=== PATIENT | female | born 1950 | race Caucasian/White ===

== ENCOUNTER 2018-02-12 10:26 | Emergency (ER) | payer MEDICARE, MEDICAID ==
[~2018-02-12] VITALS: Ht 165.1 cm; Wt 80.4 kg
[~2018-02-12 10:26] MED LIST: ALBU18HF2 IH; FLUO20CA39 PO; LABE200T28 PO; TIOT18CA7 IH
[2018-02-12 10:52] LABS: BASOPHILS # (AUTO) 0.2 X10'3 (0-0.2); BASOPHILS % (AUTO) 1.4 % (0-1); EOSINOPHILS # (AUTO) 0.3 X10'3 (0-0.9); EOSINOPHILS % (AUTO) 2.4 % (0-6); HEMATOCRIT 40.9 % (35.0-45.0); HEMOGLOBIN 13.6 g/dl (12.0-16.0); MEAN CORPUSCULAR HGB CONC 33.3 % (33.0-36.5); MEAN CORPUSCULAR VOLUME 92.9 FL (78-98); MEAN PLATELET VOLUME 9.8 FL (7.4-10.4); MONOCYTES # (AUTO) 0.9 X10'3 (0-0.9); MONOCYTES % (AUTO) 7.5 % (2-12); NEUTROPHILS % (AUTO) 70.7 % (42-75); PLATELET COUNT 221 X10'3 (140-440); RED CELL DISTRIBUTION WIDTH 14.3 % (11.5-14.5); WHITE BLOOD COUNT 11.4 X10'3 (4.5-11.0)
[2018-02-12] MEDS ORDERED: losartan 50mg tablet PO SCH (11:00)
[2018-02-12 11:02] LABS: INR 0.9 INR; PARTIAL THROMBOPLASTIN TIME 26 SECONDS (22-32); PROTHROMBIN TIME 9.7 SECONDS (9.0-12.0)
[2018-02-12 11:07] LABS: ALANINE AMINOTRANSFERASE 25 U/L (12-78); ALBUMIN 3.2 G/DL (3.4-5.0); ALBUMIN/GLOBULIN RATIO 0.9 (1.1-1.5); ALKALINE PHOSPHATASE 90 IU/L (46-116); ANION GAP 7 (8-16); ASPARTATE AMINO TRANSFERASE 23 U/L (10-37); BILIRUBIN,TOTAL 0.4 MG/DL (0.1-1.0); BLOOD UREA NITROGEN 14 MG/DL (7-18); CALCIUM 8.6 MG/DL (8.5-10.1); CHLORIDE 106 MMOL/L (99-107); GLUCOSE 110 MG/DL (70-104); POTASSIUM 3.8 MMOL/L (3.5-5.1); SODIUM 141 MMOL/L (135-145); TOTAL CARBON DIOXIDE 27.8 MMOL/L (24-32); TOTAL PROTEIN 6.9 G/DL (6.4-8.2); eGFR 56 ML/MIN
[2018-02-12 11:15] LABS: GIANT PLATELET FEW; LARGE PLATELETS FEW; PLATELET ESTIMATE NORMAL
[2018-02-12 11:57] LABS: CLARITY,URINE SLIGHTLY CLOUDY (Clear); COLOR,URINE STRAW (Yellow); GLUCOSE, URINE NEGATIVE (Neg); KETONES,URINE NEGATIVE (Neg); LEUKOCYTE ESTERASE ,URINE NEGATIVE (Neg); NITRITES, URINE NEGATIVE (Neg); OCCULT BLOOD,URINE TRACE-LYSED (Neg); PROTEIN,URINE NEGATIVE (Neg); UROBILINOGEN,URINE 0.2 E.U/dL (0.2-1.0)
[2018-02-12 11:59] LABS: UA COLLECTION TYPE CLN CATCH MIDSTREAM
[2018-02-12 12:10] LABS: SQUAMOUS EPITHELIAL CELL,UR FEW /LPF (FEW)
[2018-02-12 12:11] LABS: BACTERIA,URINE 1+ /HPF (Neg)
[2018-02-12 12:12] LABS: RBC,URINE NONE SEEN /HPF (0-2); WBC,URINE NONE SEEN /HPF (0-4)
[2018-02-12 13:47] VITALS: BP 146/88
== END 2018-02-12 13:54 | disposition home or self-care (01) ==
LOC: ER 10:26
DX: M62.81 Muscle weakness (generalized) (principal); R29.810 Facial weakness; I10 Essential (primary) hypertension; J44.9 Chronic obstructive pulmonary disease, unspecified; F17.200 Nicotine dependence, unspecified, uncomplicated; Z86.73 Personal history of transient ischemic attack (TIA), and cerebral infarction without residual deficits; Z98.61 Coronary angioplasty status; Z88.0 Allergy status to penicillin; Z88.5 Allergy status to narcotic agent; Z88.8 Allergy status to other drugs, medicaments and biological substances; Z79.899 Other long term (current) drug therapy; W18.39XA Other fall on same level, initial encounter; Y93.89 Activity, other specified; Y92.89 Other specified places as the place of occurrence of the external cause; Y99.8 Other external cause status
CPT/HCPCS: 36415; 70450; 71045; 80053; 81001; 84484; 85025; 85610; 85730; 93005; 99285

== ENCOUNTER 2018-03-21 15:19 | Inpatient (IN) | payer MEDICARE, MEDICAID ==
[~2018-03-21] VITALS: Ht 170.2 cm; Wt 76.0 kg
[2018-03-21 16:17] LABS: HEMATOCRIT 40.7 % (35.0-45.0); HEMOGLOBIN 13.6 g/dl (12.0-16.0); MEAN CORPUSCULAR HEMOGLOBIN 30.7 PG (27.0-31.0); MEAN CORPUSCULAR HGB CONC 33.4 % (33.0-36.5); MEAN PLATELET VOLUME 11.3 FL (7.4-10.4); PLATELET COUNT 181 X10'3 (140-440); RED BLOOD COUNT 4.43 X10'6 (4.20-5.60); WHITE BLOOD COUNT 13.1 X10'3 (4.5-11.0)
[2018-03-21 16:35] LABS: BURR CELLS 2+; LARGE PLATELETS MODERATE; PLATELET ESTIMATE NORMAL; PROTHROMBIN TIME 10.1 SECONDS (9.0-12.0); TOTAL CELLS COUNTED 100
[2018-03-21 16:36] LABS: GIANT PLATELET FEW; SCHISTOCYTES FEW
[2018-03-21 16:37] LABS: ROULEAUX 1+; SPHEROCYTES FEW
[2018-03-21 16:40] LABS: ALANINE AMINOTRANSFERASE 26 U/L (12-78); ALBUMIN 2.8 G/DL (3.4-5.0); ALBUMIN/GLOBULIN RATIO 0.9 (1.1-1.5); ALKALINE PHOSPHATASE 95 IU/L (46-116); ANION GAP 15 (8-16); ASPARTATE AMINO TRANSFERASE 24 U/L (10-37); BILIRUBIN,TOTAL 0.4 MG/DL (0.1-1.0); BLOOD UREA NITROGEN 63 MG/DL (7-18); BUN/CREATININE RATIO 27.4 (6.6-38.0); CHLORIDE 102 MMOL/L (99-107); ETHANOL < 0.010 GM/DL (0.0-0.010); GLUCOSE 130 MG/DL (70-104); LIPASE 52 U/L (73-393); MAGNESIUM 1.6 MG/DL (1.5-2.4); PHOSPHORUS 4.8 MG/DL (2.3-4.5); SODIUM 138 MMOL/L (135-145); TOTAL CARBON DIOXIDE 20.8 MMOL/L (24-32); TOTAL PROTEIN 5.9 G/DL (6.4-8.2); eGFR 21 ML/MIN
[2018-03-21 16:42] LABS: POTASSIUM 2.6 MMOL/L (3.5-5.1)
[2018-03-21 16:49] LABS: CALCIUM 7.8 MG/DL (8.5-10.1)
[2018-03-21] MEDS ORDERED: normal saline 1000ML IV soln IVB ONE ×2 (16:55→19:30)
[2018-03-21] MEDS: potassium 10mEq/100ml NS w/LIDOcaine (10mg/bag) IV SCH ×2 (17:25→18:31)
[2018-03-21 17:58] LABS: URINE HCG NEGATIVE (NEG)
[2018-03-21 18:00] LABS: CLARITY,URINE CLOUDY (Clear); COLOR,URINE YELLOW (Yellow); GLUCOSE, URINE NEGATIVE (Neg); KETONES,URINE NEGATIVE (Neg); LEUKOCYTE ESTERASE ,URINE SMALL (Neg); NITRITES, URINE POSITIVE (Neg); OCCULT BLOOD,URINE TRACE-INTACT (Neg); PH,URINE 5.5 (4.8-8.0); PROTEIN,URINE 30 mg/dl (Neg); UROBILINOGEN,URINE 0.2 E.U/dL (0.2-1.0)
[2018-03-21 18:03] LABS: UA COLLECTION TYPE OTHER
[2018-03-21 18:08] LABS: BACTERIA,URINE 3+ /HPF (Neg); MUCUS STRANDS NONE SEEN /LPF (Neg); RBC,URINE 0-2 /HPF (0-2); SQUAMOUS EPITHELIAL CELL,UR MODERATE /LPF (FEW)
[2018-03-21] MEDS ORDERED: levoFLOXACIN-Levaquin 750MG/D5 150 ML IV STA (19:29)
[2018-03-21] MEDS ORDERED: TIOTROPIUM (20:10)
[2018-03-21] MEDS ORDERED: [UNRECOGNIZED DRUG - OTHER] (20:10)
[2018-03-21] MEDS ORDERED: LOSARTAN POTASSIUM 50 MG TAB (20:10)
[2018-03-21] MEDS ORDERED: TRAZODONE 50 MG TABLET (20:10)
[2018-03-21] MEDS ORDERED: FLUOXETINE HCL 20 MG CAPSULE (20:10)
[2018-03-21] MEDS ORDERED: VITAMIN D3 1,000 UNIT TABLET (20:10)
[2018-03-21] MEDS ORDERED: LOSA50TA37 PO (20:17)
[2018-03-21] MEDS ORDERED: CHOL10002 PO (20:17)
[2018-03-21] MEDS ORDERED: TRAZ-218 PO (20:17)
[2018-03-21] MEDS ORDERED: acetaminophen 325mg tablet PO PRN (20:40)
[2018-03-21] MEDS ORDERED: ondansetron/PF 4mg/2ml inj IV PRN (20:40)
[2018-03-21 22:00] VITALS: BP 180/108
[2018-03-21] MEDS: ipratropium 0.5 MG/2.5ML nebule IH SCH (22:06)
[2018-03-21] MEDS: traZODone 50mg tablet PO SCH (23:04)
[2018-03-21] MEDS ORDERED: potassium Cl 20 mEq SR tablet PO PRN (23:35)
[2018-03-21] MEDS ORDERED: potassium Cl 40MEQ/NS 500ml 500 ML IV PRN ×2 (23:35)
[2018-03-21] MEDS ORDERED: magnesium Cl slow-release 64mg tablet PO PRN (23:35)
[2018-03-21] MEDS ORDERED: magnesium 4gm in 100ml NS 100 ML IV PRN (23:35)
[2018-03-21] MEDS: potassium cl 20mEq in 1/2 NS 1,000 ML IV SCH (23:50)
[2018-03-21] MEDS: metroNIDAZOLE-Flagyl 500mg/NS 100 ML IV SCH (23:50)
[2018-03-22] VITALS (14 sets, daily range): BP systolic 109–200; BP diastolic 58–109
[2018-03-22] MEDS: albuterol 2.5 MG/3 ML nebule NEB PRN ×2 (03:00→08:38)
[2018-03-22] MEDS: ipratropium 0.5 MG/2.5ML nebule IH SCH ×2 (03:00→08:38)
[2018-03-22] MEDS: potassium Cl 20 mEq SR tablet PO PRN ×2 (06:00→09:31)
[2018-03-22] MEDS: amLODIPine 2.5mg tablet PO SCH (06:03)
[2018-03-22] MEDS: potassium cl 20mEq in 1/2 NS 1,000 ML IV SCH (06:38)
[2018-03-22 07:36] LABS: RED CELL DISTRIBUTION WIDTH 14.3 % (11.5-14.5)
[2018-03-22 07:41] LABS: HEMATOCRIT 42.2 % (35.0-45.0); MEAN CORPUSCULAR HEMOGLOBIN 30.6 PG (27.0-31.0); MEAN CORPUSCULAR HGB CONC 33.2 % (33.0-36.5); MEAN CORPUSCULAR VOLUME 92.2 FL (78-98); MEAN PLATELET VOLUME 11.5 FL (7.4-10.4); PLATELET COUNT 200 X10'3 (140-440); RED BLOOD COUNT 4.58 X10'6 (4.20-5.60); WHITE BLOOD COUNT 13.3 X10'3 (4.5-11.0)
[2018-03-22 07:57] LABS: ALANINE AMINOTRANSFERASE 28 U/L (12-78); ALBUMIN 2.8 G/DL (3.4-5.0); ALBUMIN/GLOBULIN RATIO 0.9 (1.1-1.5); ALKALINE PHOSPHATASE 93 IU/L (46-116); ASPARTATE AMINO TRANSFERASE 16 U/L (10-37); BILIRUBIN,TOTAL 0.5 MG/DL (0.1-1.0); BLOOD UREA NITROGEN 41 MG/DL (7-18); BUN/CREATININE RATIO 27.2 (6.6-38.0); BURR CELLS 2+; CREATININE 1.51 MG/DL (0.40-0.90); GIANT PLATELET FEW; GLUCOSE 137 MG/DL (70-104); LARGE PLATELETS MODERATE; MAGNESIUM 1.5 MG/DL (1.5-2.4); PLATELET ESTIMATE NORMAL; ROULEAUX 1+; SCHISTOCYTES FEW; SPHEROCYTES FEW; TOTAL CARBON DIOXIDE 21.1 MMOL/L (24-32); TOTAL CELLS COUNTED 100; eGFR 35 ML/MIN
[2018-03-22 08:00] LABS: ANION GAP 12 (8-16); CHLORIDE 106 MMOL/L (99-107); SODIUM 139 MMOL/L (135-145)
[2018-03-22] MEDS ORDERED: ciprofloxacin/D5W 200mg/100mL 100 ML IV SCH (08:00)
[2018-03-22] MEDS: heparin, porcine 5000 units/ml vial SQ SCH ×2 (09:32→20:02)
[2018-03-22] MEDS: metroNIDAZOLE-Flagyl 500mg/NS 100 ML IV SCH ×2 (09:33→16:25)
[2018-03-22] MEDS: FLUoxetine 20mg capsule PO SCH (09:34)
[2018-03-22 12:54] LABS: ALANINE AMINOTRANSFERASE 24 U/L (12-78); ALBUMIN 2.8 G/DL (3.4-5.0); ALBUMIN/GLOBULIN RATIO 0.8 (1.1-1.5); ALKALINE PHOSPHATASE 98 IU/L (46-116); ANION GAP 12 (8-16); BILIRUBIN,TOTAL 0.6 MG/DL (0.1-1.0); BLOOD UREA NITROGEN 36 MG/DL (7-18); BUN/CREATININE RATIO 27.7 (6.6-38.0); CALCIUM 7.7 MG/DL (8.5-10.1); CHLORIDE 106 MMOL/L (99-107); GLUCOSE 146 MG/DL (70-104); SODIUM 138 MMOL/L (135-145); TOTAL CARBON DIOXIDE 19.9 MMOL/L (24-32); TOTAL PROTEIN 6.3 G/DL (6.4-8.2); eGFR 41 ML/MIN
[2018-03-22 12:55] LABS: ASPARTATE AMINO TRANSFERASE 29 U/L (10-37); POTASSIUM 3.5 MMOL/L (3.5-5.1)
[2018-03-22] MEDS ORDERED: furosemide 20 MG/2 ML vial IV ONE (13:35)
[2018-03-22] MEDS: ipratropium/albuterol 3ml nebule NEB SCH ×2 (14:49→20:13)
[2018-03-22] MEDS ORDERED: metroNIDAZOLE-Flagyl 500mg/NS 100 ML IV SCH (16:00)
[2018-03-22] MEDS ORDERED: vancomycin/NS 1 GM ADD-VANTAGE 250 ML IV ONE (16:00)
[2018-03-22] MEDS: metoprolol tartrate 25mg tablet PO SCH ×2 (16:25→20:03)
[2018-03-22] MEDS: hydrALAZINE 20mg/ml inj. IV PRN (17:42)
[2018-03-22] MEDS: vancomycin inj 1,250 MG in normal saline 250ml IV soln 250 ML IV SCH (17:48)
[2018-03-22] MEDS: lactobacillus rhamnosus 10,000 MMU CELLS/CAPSULE PO SCH (19:50)
[2018-03-22] MEDS: traZODone 50mg tablet PO SCH (20:03)
[2018-03-22] MEDS: budesonide 0.5mg/2ml UD nebule IH SCH (20:14)
[2018-03-23] VITALS (28 sets, daily range): BP systolic 100–206; BP diastolic 47–116
[2018-03-23] MEDS: metroNIDAZOLE-Flagyl 500mg/NS 100 ML IV SCH ×2 (00:31→07:27)
[2018-03-23] MEDS: ipratropium/albuterol 3ml nebule NEB SCH ×4 (02:15→19:54)
[2018-03-23 06:14] LABS: ALANINE AMINOTRANSFERASE 18 U/L (12-78); ALBUMIN 2.4 G/DL (3.4-5.0); ALBUMIN/GLOBULIN RATIO 0.9 (1.1-1.5); ALKALINE PHOSPHATASE 80 IU/L (46-116); ANION GAP 8 (8-16); ASPARTATE AMINO TRANSFERASE 20 U/L (10-37); BILIRUBIN,TOTAL 0.5 MG/DL (0.1-1.0); BLOOD UREA NITROGEN 32 MG/DL (7-18); CALCIUM 7.7 MG/DL (8.5-10.1); CHLORIDE 106 MMOL/L (99-107); CREATININE 1.28 MG/DL (0.40-0.90); GLUCOSE 118 MG/DL (70-104); MAGNESIUM 1.4 MG/DL (1.5-2.4); SODIUM 140 MMOL/L (135-145); TOTAL CARBON DIOXIDE 26.1 MMOL/L (24-32); TOTAL PROTEIN 5.1 G/DL (6.4-8.2); eGFR 42 ML/MIN
[2018-03-23 06:23] LABS: POTASSIUM 2.8 MMOL/L (3.5-5.1)
[2018-03-23 06:40] LABS: HEMATOCRIT 36.3 % (35.0-45.0); HEMOGLOBIN 12.1 g/dl (12.0-16.0); MEAN CORPUSCULAR HEMOGLOBIN 30.4 PG (27.0-31.0); MEAN CORPUSCULAR HGB CONC 33.2 % (33.0-36.5); MEAN CORPUSCULAR VOLUME 91.6 FL (78-98); MEAN PLATELET VOLUME 12.5 FL (7.4-10.4); PLATELET COUNT 193 X10'3 (140-440); RED BLOOD COUNT 3.96 X10'6 (4.20-5.60); RED CELL DISTRIBUTION WIDTH 13.8 % (11.5-14.5); WHITE BLOOD COUNT 9.5 X10'3 (4.5-11.0)
[2018-03-23 06:55] LABS: ACANTHOCYTES 1+; LARGE PLATELETS FEW; PLATELET ESTIMATE NORMAL; TOTAL CELLS COUNTED 100
[2018-03-23 06:56] LABS: BURR CELLS 2+; SCHISTOCYTES FEW; SPHEROCYTES FEW
[2018-03-23] MEDS: amLODIPine 2.5mg tablet PO SCH (07:26)
[2018-03-23] MEDS: FLUoxetine 20mg capsule PO SCH (07:26)
[2018-03-23] MEDS: metoprolol tartrate 25mg tablet PO SCH ×2 (07:26→21:28)
[2018-03-23] MEDS: lactobacillus rhamnosus 10,000 MMU CELLS/CAPSULE PO SCH ×2 (07:27→21:28)
[2018-03-23] MEDS: potassium Cl 20 mEq SR tablet PO PRN ×3 (07:27→16:33)
[2018-03-23] MEDS: heparin, porcine 5000 units/ml vial SQ SCH ×2 (07:28→21:27)
[2018-03-23] MEDS: budesonide 0.5mg/2ml UD nebule IH SCH ×2 (07:32→19:54)
[2018-03-23] MEDS ORDERED: levoFLOXACIN-Levaquin 750MG/D5 150 ML IV SCH (08:00)
[2018-03-23] MEDS: hydrALAZINE 20mg/ml inj. IV PRN ×2 (14:36→22:48)
[2018-03-23] MEDS: metroNIDAZOLE 500mg tablet PO SCH (16:00)
[2018-03-23] MEDS: vancomycin inj 1,250 MG in normal saline 250ml IV soln 250 ML IV SCH (17:24)
[2018-03-23] MEDS: traZODone 50mg tablet PO SCH (21:28)
[2018-03-24] VITALS (20 sets, daily range): BP systolic 86–166; BP diastolic 55–85
[2018-03-24] MEDS: metroNIDAZOLE 500mg tablet PO SCH ×2 (00:17→07:49)
[2018-03-24] MEDS: ipratropium/albuterol 3ml nebule NEB SCH ×4 (02:02→20:47)
[2018-03-24 05:08] LABS: BASOPHILS # (AUTO) 0.1 X10'3 (0-0.2); BASOPHILS % (AUTO) 0.5 % (0-1); EOSINOPHILS % (AUTO) 0.1 % (0-6); HEMATOCRIT 38.6 % (35.0-45.0); HEMOGLOBIN 12.5 g/dl (12.0-16.0); LYMPHOCYTES # (AUTO) 1.6 X10'3 (1.1-4.8); LYMPHOCYTES % (AUTO) 16.2 % (21-51); MEAN CORPUSCULAR HEMOGLOBIN 30.2 PG (27.0-31.0); MEAN CORPUSCULAR HGB CONC 32.5 % (33.0-36.5); MEAN CORPUSCULAR VOLUME 92.9 FL (78-98); MEAN PLATELET VOLUME 11.2 FL (7.4-10.4); MONOCYTES % (AUTO) 10.3 % (2-12); NEUTROPHILS # (AUTO) 7.1 X10'3 (1.8-7.7); NEUTROPHILS % (AUTO) 72.9 % (42-75); PLATELET COUNT 206 X10'3 (140-440); RED BLOOD COUNT 4.15 X10'6 (4.20-5.60); RED CELL DISTRIBUTION WIDTH 14.3 % (11.5-14.5); WHITE BLOOD COUNT 9.8 X10'3 (4.5-11.0)
[2018-03-24 05:33] LABS: ALANINE AMINOTRANSFERASE 16 U/L (12-78); ALBUMIN 2.3 G/DL (3.4-5.0); ALBUMIN/GLOBULIN RATIO 0.8 (1.1-1.5); ALKALINE PHOSPHATASE 80 IU/L (46-116); ANION GAP 6 (8-16); ASPARTATE AMINO TRANSFERASE 20 U/L (10-37); BILIRUBIN,TOTAL 0.4 MG/DL (0.1-1.0); BLOOD UREA NITROGEN 25 MG/DL (7-18); BUN/CREATININE RATIO 21.7 (6.6-38.0); CALCIUM 7.9 MG/DL (8.5-10.1); CHLORIDE 109 MMOL/L (99-107); CREATININE 1.15 MG/DL (0.40-0.90); GLUCOSE 118 MG/DL (70-104); MAGNESIUM 2.5 MG/DL (1.5-2.4); SODIUM 140 MMOL/L (135-145); TOTAL CARBON DIOXIDE 24.8 MMOL/L (24-32); TOTAL PROTEIN 5.2 G/DL (6.4-8.2); eGFR 47 ML/MIN
[2018-03-24 05:59] LABS: LARGE PLATELETS FEW; PLATELET ESTIMATE NORMAL
[2018-03-24 06:00] LABS: ANISOCYTOSIS 1+
[2018-03-24] MEDS: amLODIPine 2.5mg tablet PO SCH (06:00)
[2018-03-24] MEDS: lactobacillus rhamnosus 10,000 MMU CELLS/CAPSULE PO SCH ×2 (07:49→20:41)
[2018-03-24] MEDS: heparin, porcine 5000 units/ml vial SQ SCH ×2 (07:49→20:28)
[2018-03-24] MEDS: FLUoxetine 20mg capsule PO SCH (07:50)
[2018-03-24] MEDS: metoprolol tartrate 25mg tablet PO SCH ×2 (07:50→20:27)
[2018-03-24] MEDS: budesonide 0.5mg/2ml UD nebule IH SCH ×2 (08:12→20:47)
[2018-03-24] MEDS: multivitamins, therapeutics tablet PO SCH (16:38)
[2018-03-24] MEDS: traZODone 50mg tablet PO SCH (20:27)
[2018-03-25] VITALS (7 sets, daily range): BP systolic 137–185; BP diastolic 74–93
[2018-03-25] MEDS: ipratropium/albuterol 3ml nebule NEB SCH ×4 (02:24→20:30)
[2018-03-25 06:13] LABS: BASOPHILS % (AUTO) 0.5 % (0-1); EOSINOPHILS # (AUTO) 0.1 X10'3 (0-0.9); EOSINOPHILS % (AUTO) 1.4 % (0-6); HEMATOCRIT 38.3 % (35.0-45.0); HEMOGLOBIN 12.6 g/dl (12.0-16.0); LYMPHOCYTES # (AUTO) 1.8 X10'3 (1.1-4.8); LYMPHOCYTES % (AUTO) 18.6 % (21-51); MEAN CORPUSCULAR HEMOGLOBIN 30.4 PG (27.0-31.0); MEAN CORPUSCULAR HGB CONC 32.9 % (33.0-36.5); MEAN CORPUSCULAR VOLUME 92.3 FL (78-98); MEAN PLATELET VOLUME 10.4 FL (7.4-10.4); MONOCYTES % (AUTO) 10.1 % (2-12); NEUTROPHILS # (AUTO) 6.6 X10'3 (1.8-7.7); NEUTROPHILS % (AUTO) 69.4 % (42-75); PLATELET COUNT 216 X10'3 (140-440); RED BLOOD COUNT 4.15 X10'6 (4.20-5.60); WHITE BLOOD COUNT 9.5 X10'3 (4.5-11.0)
[2018-03-25 06:30] LABS: ALANINE AMINOTRANSFERASE 28 U/L (12-78); ALBUMIN 2.4 G/DL (3.4-5.0); ALBUMIN/GLOBULIN RATIO 0.8 (1.1-1.5); ALKALINE PHOSPHATASE 83 IU/L (46-116); ANION GAP 7 (8-16); ASPARTATE AMINO TRANSFERASE 31 U/L (10-37); BILIRUBIN,TOTAL 0.3 MG/DL (0.1-1.0); BLOOD UREA NITROGEN 27 MG/DL (7-18); BUN/CREATININE RATIO 19.6 (6.6-38.0); CALCIUM 8.1 MG/DL (8.5-10.1); CHLORIDE 108 MMOL/L (99-107); CREATININE 1.38 MG/DL (0.40-0.90); GLUCOSE 101 MG/DL (70-104); MAGNESIUM 2.3 MG/DL (1.5-2.4); SODIUM 140 MMOL/L (135-145); TOTAL CARBON DIOXIDE 25.4 MMOL/L (24-32); TOTAL PROTEIN 5.3 G/DL (6.4-8.2); eGFR 38 ML/MIN
[2018-03-25 07:38] LABS: PLATELET ESTIMATE NORMAL
[2018-03-25 07:39] LABS: BURR CELLS FEW; ELLIPTOCYTES FEW; LARGE PLATELETS FEW; SCHISTOCYTES FEW
[2018-03-25] MEDS: budesonide 0.5mg/2ml UD nebule IH SCH ×2 (08:00→20:30)
[2018-03-25] MEDS: multivitamins, therapeutics tablet PO SCH (08:04)
[2018-03-25] MEDS: levoFLOXACIN 750MG TABLET PO SCH (08:04)
[2018-03-25] MEDS: heparin, porcine 5000 units/ml vial SQ SCH ×2 (08:04→20:01)
[2018-03-25] MEDS: metoprolol tartrate 25mg tablet PO SCH ×2 (08:05→20:00)
[2018-03-25] MEDS: FLUoxetine 20mg capsule PO SCH (08:05)
[2018-03-25] MEDS: lactobacillus rhamnosus 10,000 MMU CELLS/CAPSULE PO SCH ×2 (08:05→20:00)
[2018-03-25] MEDS: metroNIDAZOLE-Flagyl 500mg/NS 100 ML IV SCH ×3 (09:30→23:37)
[2018-03-25] MEDS ORDERED: diatr meglu/diatrizoate 30ml oral sol.-(3 dose) bottle PO SCH (12:00)
[2018-03-25] MEDS ORDERED: VANCOMYCIN LEVEL IV ONE (16:30)
[2018-03-25 18:15] LABS: HIV ANTIBODY 1&2 RAPID NON-REACTIVE (Neg)
[2018-03-25] MEDS: traZODone 50mg tablet PO SCH (22:17)
[2018-03-25] MEDS: diatr meglu/diatrizoate 30ml oral sol.-(3 dose) bottle PO SCH ×2 (22:23→23:35)
[2018-03-26] VITALS (9 sets, daily range): BP systolic 126–177; BP diastolic 74–99
[2018-03-26] MEDS: ipratropium/albuterol 3ml nebule NEB SCH ×4 (02:37→21:24)
[2018-03-26] MEDS: diatr meglu/diatrizoate 30ml oral sol.-(3 dose) bottle PO SCH ×3 (03:00→09:48)
[2018-03-26 06:59] LABS: ALANINE AMINOTRANSFERASE 34 U/L (12-78); ALBUMIN 2.3 G/DL (3.4-5.0); ALBUMIN/GLOBULIN RATIO 0.8 (1.1-1.5); ALKALINE PHOSPHATASE 82 IU/L (46-116); ANION GAP 9 (8-16); ASPARTATE AMINO TRANSFERASE 42 U/L (10-37); BILIRUBIN,TOTAL 0.3 MG/DL (0.1-1.0); BLOOD UREA NITROGEN 24 MG/DL (7-18); CALCIUM 8.3 MG/DL (8.5-10.1); CHLORIDE 108 MMOL/L (99-107); GLUCOSE 119 MG/DL (70-104); PHOSPHORUS 3.7 MG/DL (2.3-4.5); POTASSIUM 4.3 MMOL/L (3.5-5.1); SODIUM 142 MMOL/L (135-145); TOTAL PROTEIN 5.2 G/DL (6.4-8.2); eGFR 45 ML/MIN
[2018-03-26 07:35] LABS: BASOPHILS % (AUTO) 0.3 % (0-1); EOSINOPHILS # (AUTO) 0.2 X10'3 (0-0.9); EOSINOPHILS % (AUTO) 1.9 % (0-6); HEMATOCRIT 38.5 % (35.0-45.0); HEMOGLOBIN 12.7 g/dl (12.0-16.0); LYMPHOCYTES # (AUTO) 2.1 X10'3 (1.1-4.8); LYMPHOCYTES % (AUTO) 18.9 % (21-51); MEAN CORPUSCULAR HEMOGLOBIN 30.2 PG (27.0-31.0); MEAN CORPUSCULAR HGB CONC 32.9 % (33.0-36.5); MEAN CORPUSCULAR VOLUME 91.9 FL (78-98); MEAN PLATELET VOLUME 10.8 FL (7.4-10.4); MONOCYTES # (AUTO) 1.3 X10'3 (0-0.9); MONOCYTES % (AUTO) 11.6 % (2-12); NEUTROPHILS # (AUTO) 7.5 X10'3 (1.8-7.7); NEUTROPHILS % (AUTO) 67.3 % (42-75); PLATELET COUNT 204 X10'3 (140-440); RED BLOOD COUNT 4.19 X10'6 (4.20-5.60); RED CELL DISTRIBUTION WIDTH 14.5 % (11.5-14.5); WHITE BLOOD COUNT 11.1 X10'3 (4.5-11.0)
[2018-03-26] MEDS: lactobacillus rhamnosus 10,000 MMU CELLS/CAPSULE PO SCH ×2 (07:42→19:55)
[2018-03-26] MEDS: FLUoxetine 20mg capsule PO SCH (07:43)
[2018-03-26] MEDS: multivitamins, therapeutics tablet PO SCH (07:43)
[2018-03-26] MEDS: metoprolol tartrate 25mg tablet PO SCH ×2 (07:46→19:55)
[2018-03-26] MEDS: metroNIDAZOLE-Flagyl 500mg/NS 100 ML IV SCH ×2 (07:46→16:23)
[2018-03-26] MEDS: heparin, porcine 5000 units/ml vial SQ SCH (07:46)
[2018-03-26] MEDS: BUDESONIDE 0.25 MG/2 ML AMPUL.NEB IH SCH ×2 (08:23→21:24)
[2018-03-26 10:21] LABS: BURR CELLS FEW; ELLIPTOCYTES FEW; PLATELET ESTIMATE NORMAL; POIKILOCYTOSIS 1+
[2018-03-26 10:22] LABS: SCHISTOCYTES FEW
[2018-03-26 10:23] LABS: LARGE PLATELETS FEW
[2018-03-26] MEDS ORDERED: furosemide 10 MG/1 ML 10ml inj IV ONE (12:15)
[2018-03-26 12:30] LABS: ABG BASE EXCESS -2.1 mmol/L (-2.0-3.0); ABG HCO3 24.3 mmol/L (22.0-26.0); ABG OXYGEN SATURATION 91.3 % (95-98); ABG PCO2 (T) 47.7 mmHg (32.0-45.0); ABG PH (T) 7.325 (7.350-7.450); ABG PO2 (T) 62.8 mmHg (83-108); ALLEN'S TEST Positive; FCOHb 0.1 % (0.5-1.5); FMetHb 0.2 % (0.3-1.12); TOTAL HEMOGLOBIN 13.8 G/dl (12.0-16.0)
[2018-03-26 13:33] LABS: D-DIMER 12.34 MG/L FEU (0-0.50)
[2018-03-26] MEDS ORDERED: heparin 10,000 units/1 ML INJ IV ONE (14:55)
[2018-03-26] MEDS ORDERED: aspirin 325mg tablet, delayed-release (Ecotrin) PO ONE (14:55)
[2018-03-26] MEDS ORDERED: heparin 10,000 units/1 ML INJ IV PRN (14:55)
[2018-03-26] MEDS ORDERED: ipratropium/albuterol 3ml nebule NEB SCH (15:00)
[2018-03-26 15:53] LABS: INR 0.9 INR; PROTHROMBIN TIME 9.6 SECONDS (9.0-12.0)
[2018-03-26 18:17] LABS: CLARITY,URINE CLEAR (Clear); COLOR,URINE YELLOW (Yellow); GLUCOSE, URINE NEGATIVE (Neg); KETONES,URINE NEGATIVE (Neg); LEUKOCYTE ESTERASE ,URINE NEGATIVE (Neg); NITRITES, URINE NEGATIVE (Neg); OCCULT BLOOD,URINE NEGATIVE (Neg); PH,URINE 5.5 (4.8-8.0); PROTEIN,URINE NEGATIVE (Neg); UROBILINOGEN,URINE 0.2 E.U/dL (0.2-1.0)
[2018-03-26 18:25] LABS: UA COLLECTION TYPE FOLEY CATH
[2018-03-26] MEDS: furosemide 40mg/4ml inj IV SCH (19:55)
[2018-03-26] MEDS: traZODone 50mg tablet PO SCH (20:00)
[2018-03-27] MEDS: metroNIDAZOLE-Flagyl 500mg/NS 100 ML IV SCH ×3 (00:26→16:27)
[2018-03-27] MEDS: ipratropium/albuterol 3ml nebule NEB SCH ×4 (02:56→21:04)
[2018-03-27 03:00] VITALS: BP 143/87
[2018-03-27 03:50] LABS: ALANINE AMINOTRANSFERASE 50 U/L (12-78); ALBUMIN 2.5 G/DL (3.4-5.0); ALBUMIN/GLOBULIN RATIO 0.8 (1.1-1.5); ALKALINE PHOSPHATASE 97 IU/L (46-116); ANION GAP 6 (8-16); ASPARTATE AMINO TRANSFERASE 84 U/L (10-37); BILIRUBIN,TOTAL 0.3 MG/DL (0.1-1.0); BLOOD UREA NITROGEN 24 MG/DL (7-18); BUN/CREATININE RATIO 20.7 (6.6-38.0); CALCIUM 8.3 MG/DL (8.5-10.1); CHLORIDE 105 MMOL/L (99-107); CHOL/HDL RATIO 2.2 (0.00-4.99); CHOLESTEROL 126 MG/DL (0-200); CREATININE 1.16 MG/DL (0.40-0.90); GLUCOSE 127 MG/DL (70-104); HDL CHOLESTEROL 58 MG/DL (35-60); LDL CHOLESTEROL 52 MG/DL (50-100); MAGNESIUM 1.8 MG/DL (1.5-2.4); PHOSPHORUS 4.1 MG/DL (2.3-4.5); POTASSIUM 3.9 MMOL/L (3.5-5.1); SODIUM 140 MMOL/L (135-145); TOTAL CARBON DIOXIDE 29.5 MMOL/L (24-32); TOTAL PROTEIN 5.6 G/DL (6.4-8.2); TRIGLYCERIDES 103 MG/DL (20-135); eGFR 47 ML/MIN
[2018-03-27 04:17] LABS: BASOPHILS # (AUTO) 0.1 X10'3 (0-0.2); BASOPHILS % (AUTO) 0.8 % (0-1); EOSINOPHILS # (AUTO) 0.3 X10'3 (0-0.9); EOSINOPHILS % (AUTO) 2.2 % (0-6); HEMATOCRIT 39.9 % (35.0-45.0); LYMPHOCYTES # (AUTO) 2.1 X10'3 (1.1-4.8); LYMPHOCYTES % (AUTO) 15.8 % (21-51); MEAN CORPUSCULAR HEMOGLOBIN 30.3 PG (27.0-31.0); MEAN CORPUSCULAR HGB CONC 32.5 % (33.0-36.5); MONOCYTES # (AUTO) 1.3 X10'3 (0-0.9); MONOCYTES % (AUTO) 9.4 % (2-12); NEUTROPHILS # (AUTO) 9.6 X10'3 (1.8-7.7); NEUTROPHILS % (AUTO) 71.8 % (42-75); PLATELET COUNT 218 X10'3 (140-440); RED BLOOD COUNT 4.29 X10'6 (4.20-5.60); RED CELL DISTRIBUTION WIDTH 14.9 % (11.5-14.5); WHITE BLOOD COUNT 13.3 X10'3 (4.5-11.0)
[2018-03-27 06:00] VITALS: BP_SYST 114; BP_SYST 120; BP_DIAS 72; BP_DIAS 77
[2018-03-27] MEDS: metoprolol tartrate 25mg tablet PO SCH ×2 (08:00→19:49)
[2018-03-27] MEDS: losartan 50mg tablet PO SCH (08:00)
[2018-03-27] MEDS: BUDESONIDE 0.25 MG/2 ML AMPUL.NEB IH SCH ×2 (08:26→21:04)
[2018-03-27] MEDS: aspirin 81mg tablet.DR PO SCH (08:37)
[2018-03-27] MEDS: atorvastatin 20mg tablet PO SCH (08:37)
[2018-03-27] MEDS: multivitamins, therapeutics tablet PO SCH (08:37)
[2018-03-27] MEDS: FLUoxetine 20mg capsule PO SCH (08:38)
[2018-03-27] MEDS: furosemide 40mg/4ml inj IV SCH ×2 (08:40→19:48)
[2018-03-27] MEDS: levoFLOXACIN 750MG TABLET PO SCH (08:46)
[2018-03-27 09:05] LABS: RPR Non Reactive (Non Reactive)
[2018-03-27] MEDS: lactobacillus rhamnosus 10,000 MMU CELLS/CAPSULE PO SCH ×2 (09:34→19:49)
[2018-03-27 11:00] VITALS: BP 108/78
[2018-03-27 11:10] LABS: C DIFF ANTIGEN NEGATIVE (NEGATIVE); C DIFF SPECIMEN=DIARRHEA? ACCEPTABLE; C DIFFICILE TOXINS A&B NEGATIVE (Neg)
[2018-03-27 12:40] LABS: HEPATITIS C ANTIBODY 0.1 s/co ratio (0.0-0.9)
[2018-03-27 15:00] VITALS: BP 128/78
[2018-03-27 19:00] VITALS: BP 116/60
[2018-03-27] MEDS: heparin, porcine 5000 units/ml vial SQ SCH (19:49)
[2018-03-27] MEDS: carVEDilol 3.125mg tablet PO SCH (19:49)
[2018-03-27] MEDS: traZODone 50mg tablet PO SCH (19:57)
[2018-03-27 23:00] VITALS: BP 111/60
[2018-03-28] VITALS (8 sets, daily range): BP systolic 97–156; BP diastolic 54–78
[2018-03-28] MEDS: metroNIDAZOLE-Flagyl 500mg/NS 100 ML IV SCH ×3 (00:57→18:36)
[2018-03-28] MEDS: ipratropium/albuterol 3ml nebule NEB SCH ×4 (02:48→20:29)
[2018-03-28 07:07] LABS: BASOPHILS % (AUTO) 0.3 % (0-1); EOSINOPHILS # (AUTO) 0.4 X10'3 (0-0.9); EOSINOPHILS % (AUTO) 2.4 % (0-6); HEMATOCRIT 36.7 % (35.0-45.0); LYMPHOCYTES # (AUTO) 2.2 X10'3 (1.1-4.8); LYMPHOCYTES % (AUTO) 14.8 % (21-51); MEAN CORPUSCULAR HEMOGLOBIN 30.5 PG (27.0-31.0); MEAN CORPUSCULAR HGB CONC 32.7 % (33.0-36.5); MEAN CORPUSCULAR VOLUME 93.3 FL (78-98); MEAN PLATELET VOLUME 10.4 FL (7.4-10.4); MONOCYTES # (AUTO) 1.5 X10'3 (0-0.9); MONOCYTES % (AUTO) 9.9 % (2-12); NEUTROPHILS # (AUTO) 10.7 X10'3 (1.8-7.7); NEUTROPHILS % (AUTO) 72.6 % (42-75); PLATELET COUNT 219 X10'3 (140-440); RED BLOOD COUNT 3.93 X10'6 (4.20-5.60); RED CELL DISTRIBUTION WIDTH 14.6 % (11.5-14.5); WHITE BLOOD COUNT 14.7 X10'3 (4.5-11.0)
[2018-03-28 07:26] LABS: LARGE PLATELETS FEW; PLATELET ESTIMATE NORMAL
[2018-03-28] MEDS: multivitamins, therapeutics tablet PO SCH (07:40)
[2018-03-28] MEDS: carVEDilol 3.125mg tablet PO SCH ×2 (07:40→20:09)
[2018-03-28] MEDS: lactobacillus rhamnosus 10,000 MMU CELLS/CAPSULE PO SCH ×2 (07:40→18:36)
[2018-03-28] MEDS: atorvastatin 20mg tablet PO SCH (07:40)
[2018-03-28] MEDS: FLUoxetine 20mg capsule PO SCH (07:41)
[2018-03-28] MEDS: aspirin 81mg tablet.DR PO SCH (07:41)
[2018-03-28 07:44] LABS: ALANINE AMINOTRANSFERASE 41 U/L (12-78); ALBUMIN 2.4 G/DL (3.4-5.0); ALBUMIN/GLOBULIN RATIO 0.9 (1.1-1.5); ALKALINE PHOSPHATASE 84 IU/L (46-116); ANION GAP 9 (8-16); ASPARTATE AMINO TRANSFERASE 48 U/L (10-37); BILIRUBIN,TOTAL 0.3 MG/DL (0.1-1.0); BLOOD UREA NITROGEN 30 MG/DL (7-18); BUN/CREATININE RATIO 23.4 (6.6-38.0); CHLORIDE 103 MMOL/L (99-107); CREATININE 1.28 MG/DL (0.40-0.90); GLUCOSE 129 MG/DL (70-104); MAGNESIUM 1.7 MG/DL (1.5-2.4); PHOSPHORUS 3.5 MG/DL (2.3-4.5); POTASSIUM 3.3 MMOL/L (3.5-5.1); SODIUM 140 MMOL/L (135-145); TOTAL CARBON DIOXIDE 28.4 MMOL/L (24-32); TOTAL PROTEIN 5.2 G/DL (6.4-8.2); eGFR 42 ML/MIN
[2018-03-28] MEDS: heparin, porcine 5000 units/ml vial SQ SCH ×2 (07:44→20:09)
[2018-03-28] MEDS: furosemide 40mg/4ml inj IV SCH ×2 (07:46→20:10)
[2018-03-28] MEDS: losartan 50mg tablet PO SCH ×2 (08:00→14:36)
[2018-03-28] MEDS: metoprolol tartrate 25mg tablet PO SCH (08:00)
[2018-03-28] MEDS: BUDESONIDE 0.25 MG/2 ML AMPUL.NEB IH SCH ×3 (08:28→20:29)
[2018-03-28] MEDS ORDERED: magnesium Cl slow-release 64mg tablet PO PRN (09:35)
[2018-03-28] MEDS ORDERED: potassium Cl 40MEQ/NS 500ml 500 ML IV PRN ×2 (09:35)
[2018-03-28] MEDS ORDERED: magnesium 1gm/100ml D5W IVPB 100 ML IV PRN (09:35)
[2018-03-28] MEDS ORDERED: magnesium 4gm in 100ml NS 100 ML IV PRN (09:35)
[2018-03-28] MEDS ORDERED: potassium Cl 20 mEq SR tablet PO PRN ×2 (09:35)
[2018-03-28] MEDS ORDERED: potassium Cl oral solution 20 MEQ/15 ML PO PRN (10:15)
[2018-03-28] MEDS: potassium Cl oral solution 20 MEQ/15 ML PO PRN ×3 (10:27→20:09)
[2018-03-28] MEDS ORDERED: losartan 50mg tablet PO SCH (14:00)
[2018-03-28] MEDS ORDERED: furosemide 40mg/4ml inj IV ONE (15:15)
[2018-03-28] MEDS ORDERED: piperacillin-tazo 2.25gm/50ml 50 ML IV SCH (20:00)
[2018-03-28] MEDS: traZODone 50mg tablet PO SCH (20:09)
[2018-03-29] MEDS: metroNIDAZOLE-Flagyl 500mg/NS 100 ML IV SCH ×3 (00:40→16:33)
[2018-03-29] MEDS: ipratropium/albuterol 3ml nebule NEB SCH ×4 (02:51→20:10)
[2018-03-29 03:00] VITALS: BP 121/71
[2018-03-29 05:56] LABS: BASOPHILS # (AUTO) 0.3 X10'3 (0-0.2); EOSINOPHILS # (AUTO) 0.2 X10'3 (0-0.9); EOSINOPHILS % (AUTO) 1.1 % (0-6); HEMATOCRIT 36.7 % (35.0-45.0); HEMOGLOBIN 12.4 g/dl (12.0-16.0); LYMPHOCYTES # (AUTO) 2.8 X10'3 (1.1-4.8); MEAN CORPUSCULAR HEMOGLOBIN 31.1 PG (27.0-31.0); MEAN CORPUSCULAR HGB CONC 33.8 % (33.0-36.5); MEAN CORPUSCULAR VOLUME 92.2 FL (78-98); MONOCYTES # (AUTO) 1.7 X10'3 (0-0.9); MONOCYTES % (AUTO) 11.6 % (2-12); NEUTROPHILS # (AUTO) 9.5 X10'3 (1.8-7.7); NEUTROPHILS % (AUTO) 66.3 % (42-75); PLATELET COUNT 214 X10'3 (140-440); RED BLOOD COUNT 3.98 X10'6 (4.20-5.60); RED CELL DISTRIBUTION WIDTH 13.9 % (11.5-14.5); WHITE BLOOD COUNT 14.5 X10'3 (4.5-11.0)
[2018-03-29 06:23] LABS: ALANINE AMINOTRANSFERASE 47 U/L (12-78); ALBUMIN 2.3 G/DL (3.4-5.0); ALBUMIN/GLOBULIN RATIO 0.8 (1.1-1.5); ALKALINE PHOSPHATASE 75 IU/L (46-116); ANION GAP 7 (8-16); ASPARTATE AMINO TRANSFERASE 42 U/L (10-37); BILIRUBIN,TOTAL 0.2 MG/DL (0.1-1.0); BLOOD UREA NITROGEN 37 MG/DL (7-18); BUN/CREATININE RATIO 29.1 (6.6-38.0); CALCIUM 8.3 MG/DL (8.5-10.1); CHLORIDE 104 MMOL/L (99-107); CREATININE 1.27 MG/DL (0.40-0.90); GLUCOSE 143 MG/DL (70-104); MAGNESIUM 1.7 MG/DL (1.5-2.4); PHOSPHORUS 3.5 MG/DL (2.3-4.5); SODIUM 141 MMOL/L (135-145); TOTAL CARBON DIOXIDE 30.3 MMOL/L (24-32); TOTAL PROTEIN 5.1 G/DL (6.4-8.2); eGFR 42 ML/MIN
[2018-03-29 07:00] VITALS: BP 105/62
[2018-03-29] MEDS: lactobacillus rhamnosus 10,000 MMU CELLS/CAPSULE PO SCH ×2 (07:00→19:59)
[2018-03-29] MEDS: carVEDilol 3.125mg tablet PO SCH ×2 (08:00→19:59)
[2018-03-29] MEDS: BUDESONIDE 0.25 MG/2 ML AMPUL.NEB IH SCH (08:16)
[2018-03-29] MEDS: aspirin 81mg tablet.DR PO SCH (08:16)
[2018-03-29] MEDS: heparin, porcine 5000 units/ml vial SQ SCH ×2 (08:16→20:01)
[2018-03-29] MEDS: furosemide 40mg/4ml inj IV SCH ×2 (08:16→20:02)
[2018-03-29] MEDS: FLUoxetine 20mg capsule PO SCH (08:17)
[2018-03-29] MEDS: levoFLOXACIN 750MG TABLET PO SCH (08:17)
[2018-03-29] MEDS: atorvastatin 20mg tablet PO SCH (08:17)
[2018-03-29] MEDS: multivitamins, therapeutics tablet PO SCH (08:17)
[2018-03-29 11:00] VITALS: BP 96/54
[2018-03-29] MEDS: losartan 50mg tablet PO SCH (14:00)
[2018-03-29 15:00] VITALS: BP 112/58
[2018-03-29 19:00] VITALS: BP 123/75
[2018-03-29] MEDS: traZODone 50mg tablet PO SCH (21:26)
[2018-03-29 23:00] VITALS: BP 139/68
[2018-03-30] MEDS: metroNIDAZOLE-Flagyl 500mg/NS 100 ML IV SCH ×2 (00:49→07:49)
[2018-03-30] MEDS: ipratropium/albuterol 3ml nebule NEB SCH ×5 (02:38→22:40)
[2018-03-30 03:00] VITALS: BP 117/63
[2018-03-30 06:51] LABS: BASOPHILS # (AUTO) 0.1 X10'3 (0-0.2); BASOPHILS % (AUTO) 0.4 % (0-1); EOSINOPHILS # (AUTO) 0.3 X10'3 (0-0.9); EOSINOPHILS % (AUTO) 1.8 % (0-6); HEMATOCRIT 36.8 % (35.0-45.0); HEMOGLOBIN 12.2 g/dl (12.0-16.0); LYMPHOCYTES # (AUTO) 2.3 X10'3 (1.1-4.8); LYMPHOCYTES % (AUTO) 13.4 % (21-51); MEAN CORPUSCULAR HEMOGLOBIN 30.5 PG (27.0-31.0); MEAN CORPUSCULAR HGB CONC 33.1 % (33.0-36.5); MEAN CORPUSCULAR VOLUME 92.4 FL (78-98); MEAN PLATELET VOLUME 10.2 FL (7.4-10.4); MONOCYTES # (AUTO) 1.4 X10'3 (0-0.9); MONOCYTES % (AUTO) 8.1 % (2-12); NEUTROPHILS # (AUTO) 12.8 X10'3 (1.8-7.7); NEUTROPHILS % (AUTO) 76.3 % (42-75); PLATELET COUNT 220 X10'3 (140-440); RED BLOOD COUNT 3.98 X10'6 (4.20-5.60); RED CELL DISTRIBUTION WIDTH 13.5 % (11.5-14.5); WHITE BLOOD COUNT 16.9 X10'3 (4.5-11.0)
[2018-03-30 07:00] VITALS: BP 123/61
[2018-03-30 07:06] LABS: ANION GAP 5 (8-16); BILIRUBIN,TOTAL 0.3 MG/DL (0.1-1.0); BLOOD UREA NITROGEN 35 MG/DL (7-18); BUN/CREATININE RATIO 27.6 (6.6-38.0); CALCIUM 8.2 MG/DL (8.5-10.1); CHLORIDE 101 MMOL/L (99-107); CREATININE 1.27 MG/DL (0.40-0.90); GLUCOSE 142 MG/DL (70-104); MAGNESIUM 1.7 MG/DL (1.5-2.4); PHOSPHORUS 3.9 MG/DL (2.3-4.5); POTASSIUM 4.3 MMOL/L (3.5-5.1); SODIUM 136 MMOL/L (135-145); TOTAL CARBON DIOXIDE 30.3 MMOL/L (24-32); TOTAL PROTEIN 5.2 G/DL (6.4-8.2); eGFR 42 ML/MIN
[2018-03-30 07:07] LABS: ALANINE AMINOTRANSFERASE 43 U/L (12-78); ALBUMIN 2.2 G/DL (3.4-5.0); ALBUMIN/GLOBULIN RATIO 0.7 (1.1-1.5); ALKALINE PHOSPHATASE 75 IU/L (46-116); ASPARTATE AMINO TRANSFERASE 42 U/L (10-37)
[2018-03-30] MEDS: BUDESONIDE 0.25 MG/2 ML AMPUL.NEB IH SCH ×2 (07:49→18:58)
[2018-03-30] MEDS: lactobacillus rhamnosus 10,000 MMU CELLS/CAPSULE PO SCH ×2 (07:49→19:29)
[2018-03-30] MEDS: multivitamins, therapeutics tablet PO SCH (07:50)
[2018-03-30] MEDS: atorvastatin 20mg tablet PO SCH (07:50)
[2018-03-30] MEDS: furosemide 40mg/4ml inj IV SCH ×2 (07:50→19:31)
[2018-03-30] MEDS: FLUoxetine 20mg capsule PO SCH (07:50)
[2018-03-30] MEDS: heparin, porcine 5000 units/ml vial SQ SCH ×2 (07:51→19:30)
[2018-03-30] MEDS: carVEDilol 3.125mg tablet PO SCH ×2 (08:00→19:29)
[2018-03-30] MEDS: aspirin 81mg tablet.DR PO SCH (08:05)
[2018-03-30] MEDS: vancomycin/NS 1 GM ADD-VANTAGE 250 ML IV SCH (10:41)
[2018-03-30 11:00] VITALS: BP 110/60
[2018-03-30] MEDS ORDERED: ipratropium/albuterol 3ml nebule NEB PRN (12:20)
[2018-03-30] MEDS: losartan 50mg tablet PO SCH (14:00)
[2018-03-30 15:00] VITALS: BP 110/71
[2018-03-30] MEDS: clindamycin 600mg/D5W 50ml 50 ML IV SCH ×2 (15:16→19:38)
[2018-03-30] MEDS ORDERED: cefepime 1GM/NS ADD-VANTAGE 100 ML IV SCH (16:00)
[2018-03-30] MEDS: aztreonam inj. 2,000 MG in dextrose 5%-water 100 ML IV SCH ×2 (18:20→23:48)
[2018-03-30 19:00] VITALS: BP 118/65
[2018-03-30] MEDS: traZODone 50mg tablet PO SCH (20:23)
[2018-03-30 23:00] VITALS: BP 109/65
[2018-03-31] MEDS: clindamycin 600mg/D5W 50ml 50 ML IV SCH ×4 (01:13→19:39)
[2018-03-31 03:00] VITALS: BP 102/62
[2018-03-31 06:26] LABS: BASOPHILS # (AUTO) 0.2 X10'3 (0-0.2); EOSINOPHILS # (AUTO) 0.7 X10'3 (0-0.9); EOSINOPHILS % (AUTO) 3.7 % (0-6); HEMATOCRIT 34.5 % (35.0-45.0); HEMOGLOBIN 11.5 g/dl (12.0-16.0); LYMPHOCYTES # (AUTO) 2.1 X10'3 (1.1-4.8); LYMPHOCYTES % (AUTO) 12.2 % (21-51); MEAN CORPUSCULAR HEMOGLOBIN 30.5 PG (27.0-31.0); MEAN CORPUSCULAR HGB CONC 33.2 % (33.0-36.5); MEAN CORPUSCULAR VOLUME 91.8 FL (78-98); MEAN PLATELET VOLUME 9.6 FL (7.4-10.4); MONOCYTES # (AUTO) 1.4 X10'3 (0-0.9); MONOCYTES % (AUTO) 8.2 % (2-12); NEUTROPHILS # (AUTO) 13.2 X10'3 (1.8-7.7); NEUTROPHILS % (AUTO) 74.9 % (42-75); PLATELET COUNT 222 X10'3 (140-440); RED BLOOD COUNT 3.76 X10'6 (4.20-5.60); RED CELL DISTRIBUTION WIDTH 14.6 % (11.5-14.5); WHITE BLOOD COUNT 17.6 X10'3 (4.5-11.0)
[2018-03-31 06:48] LABS: ALANINE AMINOTRANSFERASE 46 U/L (12-78); ALBUMIN/GLOBULIN RATIO 0.7 (1.1-1.5); ALKALINE PHOSPHATASE 80 IU/L (46-116); ANION GAP 3 (8-16); ASPARTATE AMINO TRANSFERASE 64 U/L (10-37); BILIRUBIN,TOTAL 0.3 MG/DL (0.1-1.0); BLOOD UREA NITROGEN 34 MG/DL (7-18); BUN/CREATININE RATIO 28.1 (6.6-38.0); CHLORIDE 101 MMOL/L (99-107); CREATININE 1.21 MG/DL (0.40-0.90); GLUCOSE 139 MG/DL (70-104); MAGNESIUM 1.7 MG/DL (1.5-2.4); PHOSPHORUS 4.3 MG/DL (2.3-4.5); POTASSIUM 4.4 MMOL/L (3.5-5.1); SODIUM 136 MMOL/L (135-145); TOTAL CARBON DIOXIDE 31.9 MMOL/L (24-32); eGFR 45 ML/MIN
[2018-03-31 07:00] VITALS: BP 123/73
[2018-03-31] MEDS: lactobacillus rhamnosus 10,000 MMU CELLS/CAPSULE PO SCH ×2 (07:42→19:40)
[2018-03-31] MEDS: aspirin 81mg tablet.DR PO SCH (07:43)
[2018-03-31] MEDS: FLUoxetine 20mg capsule PO SCH (07:43)
[2018-03-31] MEDS: multivitamins, therapeutics tablet PO SCH (07:43)
[2018-03-31] MEDS: furosemide 40mg/4ml inj IV SCH ×2 (07:43→19:40)
[2018-03-31] MEDS: heparin, porcine 5000 units/ml vial SQ SCH ×2 (07:43→19:45)
[2018-03-31] MEDS: atorvastatin 20mg tablet PO SCH (07:44)
[2018-03-31] MEDS: carVEDilol 3.125mg tablet PO SCH ×2 (07:45→19:40)
[2018-03-31] MEDS: BUDESONIDE 0.25 MG/2 ML AMPUL.NEB IH SCH ×2 (08:02→19:54)
[2018-03-31] MEDS: aztreonam inj. 2,000 MG in dextrose 5%-water 100 ML IV SCH ×2 (09:09→17:16)
[2018-03-31 11:00] VITALS: BP 126/63
[2018-03-31] MEDS: vancomycin/NS 1 GM ADD-VANTAGE 250 ML IV SCH (11:02)
[2018-03-31] MEDS: nystatin 15 GM powder TP SCH ×2 (13:45→20:06)
[2018-03-31] MEDS: losartan 50mg tablet PO SCH (13:45)
[2018-03-31 15:00] VITALS: BP 130/67
[2018-03-31 19:00] VITALS: BP 131/69
[2018-03-31] MEDS: albuterol 2.5 MG/3 ML nebule NEB PRN (19:55)
[2018-03-31] MEDS: traZODone 50mg tablet PO SCH (20:06)
[2018-03-31 23:00] VITALS: BP 130/76
[2018-03-31] MEDS: aztreonam inj. 2,000 MG in normal saline 100ml IV soln 100 ML IV SCH (23:57)
[2018-03-31] MEDS ORDERED: aztreonam inj. 2,000 MG in dextrose 5%-water 100 ML IV SCH (23:59)
[2018-04-01] MEDS: clindamycin 600mg/D5W 50ml 50 ML IV SCH ×3 (02:19→14:21)
[2018-04-01 03:00] VITALS: BP 132/80
[2018-04-01 06:00] VITALS: BP 112/60
[2018-04-01 06:47] LABS: HEMOGLOBIN 11.3 g/dl (12.0-16.0); LYMPHOCYTES # (AUTO) 2.2 X10'3 (1.1-4.8); MONOCYTES # (AUTO) 1.3 X10'3 (0-0.9)
[2018-04-01 07:02] LABS: BASOPHILS % (AUTO) 0 % (0-1); EOSINOPHILS # (AUTO) 0.8 X10'3 (0-0.9); EOSINOPHILS % (AUTO) 4.9 % (0-6); HEMATOCRIT 34.6 % (35.0-45.0); LYMPHOCYTES % (AUTO) 13.4 % (21-51); MEAN CORPUSCULAR HEMOGLOBIN 30.6 PG (27.0-31.0); MEAN CORPUSCULAR HGB CONC 32.7 % (33.0-36.5); MEAN CORPUSCULAR VOLUME 93.8 FL (78-98); MONOCYTES % (AUTO) 7.8 % (2-12); NEUTROPHILS # (AUTO) 11.9 X10'3 (1.8-7.7); NEUTROPHILS % (AUTO) 73.9 % (42-75); PLATELET COUNT 223 X10'3 (140-440); RED BLOOD COUNT 3.69 X10'6 (4.20-5.60); RED CELL DISTRIBUTION WIDTH 14.8 % (11.5-14.5)
[2018-04-01 07:09] LABS: ALANINE AMINOTRANSFERASE 48 U/L (12-78); ALBUMIN/GLOBULIN RATIO 0.6 (1.1-1.5); ALKALINE PHOSPHATASE 75 IU/L (46-116); ANION GAP 1 (8-16); ASPARTATE AMINO TRANSFERASE 44 U/L (10-37); BILIRUBIN,TOTAL 0.2 MG/DL (0.1-1.0); BLOOD UREA NITROGEN 33 MG/DL (7-18); BUN/CREATININE RATIO 28.7 (6.6-38.0); CALCIUM 8.5 MG/DL (8.5-10.1); CHLORIDE 101 MMOL/L (99-107); CREATININE 1.15 MG/DL (0.40-0.90); GLUCOSE 139 MG/DL (70-104); MAGNESIUM 2.1 MG/DL (1.5-2.4); PHOSPHORUS 4.2 MG/DL (2.3-4.5); POTASSIUM 4.2 MMOL/L (3.5-5.1); SODIUM 136 MMOL/L (135-145); TOTAL CARBON DIOXIDE 33.7 MMOL/L (24-32); TOTAL PROTEIN 5.1 G/DL (6.4-8.2); eGFR 47 ML/MIN
[2018-04-01 07:21] LABS: GIANT PLATELET FEW; LARGE PLATELETS FEW; PLATELET ESTIMATE NORMAL
[2018-04-01] MEDS: BUDESONIDE 0.25 MG/2 ML AMPUL.NEB IH SCH (08:03)
[2018-04-01] MEDS: albuterol 2.5 MG/3 ML nebule NEB PRN (08:07)
[2018-04-01] MEDS: FLUoxetine 20mg capsule PO SCH (08:14)
[2018-04-01] MEDS: carVEDilol 3.125mg tablet PO SCH (08:14)
[2018-04-01] MEDS: atorvastatin 20mg tablet PO SCH (08:14)
[2018-04-01] MEDS: multivitamins, therapeutics tablet PO SCH (08:14)
[2018-04-01] MEDS: lactobacillus rhamnosus 10,000 MMU CELLS/CAPSULE PO SCH (08:14)
[2018-04-01] MEDS: aspirin 81mg tablet.DR PO SCH (08:14)
[2018-04-01] MEDS: furosemide 40mg/4ml inj IV SCH (08:14)
[2018-04-01] MEDS: heparin, porcine 5000 units/ml vial SQ SCH (08:16)
[2018-04-01] MEDS: nystatin 15 GM powder TP SCH ×2 (08:18→14:21)
[2018-04-01] MEDS: aztreonam inj. 2,000 MG in normal saline 100ml IV soln 100 ML IV SCH (09:12)
[2018-04-01] MEDS: vancomycin/NS 1 GM ADD-VANTAGE 250 ML IV SCH (10:50)
[2018-04-01 11:00] VITALS: BP 142/64
[2018-04-01] MEDS: losartan 50mg tablet PO SCH (14:20)
[2018-04-01 16:00] VITALS: BP 119/52
[2018-04-01] MEDS ORDERED: vancomycin/NS 1 GM ADD-VANTAGE 250 ML IV SCH (22:00)
[2018-04-02] MEDS ORDERED: VANCOMYCIN LEVEL IV NR (09:30)
[2018-04-02] MEDS ORDERED: VANCOMYCIN LEVEL IV ONE (21:30)
== END 2018-04-01 16:25 | DRG 871 ==
LOC: ER 15:20 → ED HOLD 20:38 → ORTHO 4S 21:56 → ICU 2S 03-22 10:48 → PCU 3S 03-24 19:39
PROVIDERS: ADMIT Internal Medicine; ATTEND Family Medicine
PROC: 5A09357 Assistance with Respiratory Ventilation, Less than 24 Consecutive Hours, Continuous Positive Airway Pressure (ICD-10-PCS; principal; 2018-03-26)
PROC: 5A09357 Assistance with Respiratory Ventilation, Less than 24 Consecutive Hours, Continuous Positive Airway Pressure (ICD-10-PCS; 2018-03-27)
PROC: CB221ZZ Tomographic (Tomo) Nuclear Medicine Imaging of Lungs and Bronchi using Technetium 99m (Tc-99m) (ICD-10-PCS; 2018-03-27)
PROC: 5A09357 Assistance with Respiratory Ventilation, Less than 24 Consecutive Hours, Continuous Positive Airway Pressure (ICD-10-PCS; 2018-03-28)
PROC: 5A09357 Assistance with Respiratory Ventilation, Less than 24 Consecutive Hours, Continuous Positive Airway Pressure (ICD-10-PCS; 2018-03-29)
PROC: 5A09357 Assistance with Respiratory Ventilation, Less than 24 Consecutive Hours, Continuous Positive Airway Pressure (ICD-10-PCS; 2018-03-30)
PROC: 5A09357 Assistance with Respiratory Ventilation, Less than 24 Consecutive Hours, Continuous Positive Airway Pressure (ICD-10-PCS; 2018-03-31)
PROC: 5A09357 Assistance with Respiratory Ventilation, Less than 24 Consecutive Hours, Continuous Positive Airway Pressure (ICD-10-PCS; 2018-04-01)
DX: A41.9 Sepsis, unspecified organism (principal); J96.20 Acute and chronic respiratory failure, unspecified whether with hypoxia or hypercapnia; I63.9 Cerebral infarction, unspecified; N17.0 Acute kidney failure with tubular necrosis; I50.43 Acute on chronic combined systolic (congestive) and diastolic (congestive) heart failure; J69.0 Pneumonitis due to inhalation of food and vomit; G93.40 Encephalopathy, unspecified; I13.0 Hypertensive heart and chronic kidney disease with heart failure and stage 1 through stage 4 chronic kidney disease, or unspecified chronic kidney disease; I47.1 Supraventricular tachycardia; K56.7 Ileus, unspecified; M48.54XA Collapsed vertebra, not elsewhere classified, thoracic region, initial encounter for fracture; N39.0 Urinary tract infection, site not specified; K52.9 Noninfective gastroenteritis and colitis, unspecified; F32.9 Major depressive disorder, single episode, unspecified; B96.20 Unspecified Escherichia coli [E. coli] as the cause of diseases classified elsewhere; J44.9 Chronic obstructive pulmonary disease, unspecified; E87.6 Hypokalemia; K63.89 Other specified diseases of intestine; G51.0 Bell's palsy; D35.02 Benign neoplasm of left adrenal gland; F01.50 Vascular dementia, unspecified severity, without behavioral disturbance, psychotic disturbance, mood disturbance, and anxiety; D64.9 Anemia, unspecified; K21.9 Gastro-esophageal reflux disease without esophagitis; E66.01 Morbid (severe) obesity due to excess calories; N18.9 Chronic kidney disease, unspecified; R79.1 Abnormal coagulation profile; Z66 Do not resuscitate; Z98.51 Tubal ligation status; Z90.710 Acquired absence of both cervix and uterus; Z90.81 Acquired absence of spleen; Z99.81 Dependence on supplemental oxygen; Z88.5 Allergy status to narcotic agent; Z88.0 Allergy status to penicillin; Z88.8 Allergy status to other drugs, medicaments and biological substances; Z79.899 Other long term (current) drug therapy; Z68.26 Body mass index [BMI] 26.0-26.9, adult; Y92.89 Other specified places as the place of occurrence of the external cause
CPT/HCPCS: 36415; 36600; 70551; 71045; 71250; 74176; 78582; 80053; 80061; 80320; 81001; 81003; 81025; 82140; 82607; 82746; 82803; 83605; 83690; 83735; 83880; 84100; 84132; 84443; 84484; 85018; 85025; 85379; 85610; 85730; 86592; 86703; 86803; 87040; 87070; 87077; 87088; 87186; 87324; 87449; 89055; 92616; 93005; 93306; 93880; 93970; 94640; 94660; 94667; 94668; 94760; 96360; 96361; 97110; 97161; 97530; 99285; A4315; A6212; A6213; A6250; A9539; A9540; J0360; J0744; J1644; J1940; J1956; J3370; J3475; J3480; J3490; J7030; J7060; J7626; Q9963

== ENCOUNTER 2019-02-24 10:37 | Inpatient (IN) | payer MEDICARE, MEDICAID ==
[~2019-02-24] VITALS: Ht 165.1 cm; Wt 85.0 kg
[~2019-02-24 10:37] MED LIST changes: -ALBU18HF2 IH; +CHOL10002 PO; -LABE200T28 PO; +LOSA50TA64 PO; +TRAZ-251 PO
--- NOTE | 2019-02-24 10:55 | NUR ---
MANUAL BP TAKEN, PTS BP 260/115. PTS SATS 86-88% ON 2L, O2 INCREASED TO 4L. PT FINDINGS REPORTED TO MD BULL AND PT MOVED TO BED 3 FROM BED 10. REPORT GIVEN TO WILBERTO PRESTON.
[2019-02-24] MEDS ORDERED: levoFLOXACIN-Levaquin 750MG/D5 150 ML IV ONE (11:05)
[2019-02-24] MEDS ORDERED: nitroGLYCERIN-Tridil 50MG/D5W 250 ML IV SCH (11:05)
[2019-02-24] MEDS ORDERED: ipratropium/albuterol 3ml nebule ONE (11:24)
[2019-02-24 11:50] LABS: CLARITY,URINE CLOUDY (Clear); COLOR,URINE YELLOW (Yellow); GLUCOSE, URINE NEGATIVE (Neg); KETONES,URINE NEGATIVE (Neg); LEUKOCYTE ESTERASE ,URINE NEGATIVE (Neg); NITRITES, URINE POSITIVE (Neg); OCCULT BLOOD,URINE NEGATIVE (Neg); PROTEIN,URINE NEGATIVE (Neg); UROBILINOGEN,URINE 0.2 E.U/dL (0.2-1.0)
[2019-02-24 11:52] LABS: BASOPHILS # (AUTO) 0.1 X10'3 (0-0.2); HEMATOCRIT 40.1 % (35.0-45.0); HEMOGLOBIN 12.8 g/dl (12.0-16.0); LYMPHOCYTES # (AUTO) 2.1 X10'3 (1.1-4.8); MEAN CORPUSCULAR HEMOGLOBIN 30.8 PG (27.0-31.0); MEAN CORPUSCULAR HGB CONC 31.9 g/dL (33.0-36.5); MEAN CORPUSCULAR VOLUME 96.4 FL (78-98); MONOCYTES # (AUTO) 0.9 X10'3 (0-0.9)
[2019-02-24 11:53] LABS: BASOPHILS % (AUTO) 1.5 % (0-1); EOSINOPHILS # (AUTO) 0.4 X10'3 (0-0.9); EOSINOPHILS % (AUTO) 3.9 % (0-6); LYMPHOCYTES % (AUTO) 22.1 % (21-51); MEAN PLATELET VOLUME 10.3 FL (7.4-10.4); MONOCYTES % (AUTO) 9.1 % (2-12); NEUTROPHILS # (AUTO) 6.1 X10'3 (1.8-7.7); NEUTROPHILS % (AUTO) 63.4 % (42-75); PLATELET COUNT 267 X10'3 (140-440); RED BLOOD COUNT 4.17 X10'6 (4.20-5.60); RED CELL DISTRIBUTION WIDTH 14.5 % (11.5-14.5); WHITE BLOOD COUNT 9.5 X10'3 (4.5-11.0)
[2019-02-24 11:56] LABS: ABG BASE EXCESS 7.2 mmol/L (-2.0-3.0); ABG HCO3 35.2 mmol/L (22.0-26.0); ABG PCO2 (T) 66.7 mmHg (32.0-45.0); ABG PO2 (T) 77.7 mmHg (83-108); ALLEN'S TEST Positive; FCOHb 1.2 % (0.5-1.5); FLOW 3 L/min; FMetHb 0.2 % (0.3-1.12); FO2Hb 93.7 % (94-100); RESPIRATORY RATE (OBSERVED) 20 b/min; TOTAL HEMOGLOBIN 13.2 G/dl (12.0-16.0)
[2019-02-24 11:59] LABS: UA COLLECTION TYPE STRAIGHT CATH
[2019-02-24 12:01] LABS: BACTERIA,URINE 3+ /HPF (Neg); SQUAMOUS EPITHELIAL CELL,UR MODERATE /LPF (FEW)
[2019-02-24 12:02] LABS: RBC,URINE 0-2 /HPF (0-2); WBC CLUMPS,URINE MODERATE /HPF (NEGATIVE)
[2019-02-24 12:08] LABS: PARTIAL THROMBOPLASTIN TIME 28 SECONDS (22-32)
[2019-02-24 12:31] LABS: PLATELET ESTIMATE NORMAL
[2019-02-24 12:32] LABS: GIANT PLATELET FEW; LARGE PLATELETS FEW
[2019-02-24 12:38] LABS: ALANINE AMINOTRANSFERASE 15 U/L (12-78); ALBUMIN/GLOBULIN RATIO 0.8 (1.1-1.5); ALKALINE PHOSPHATASE 76 IU/L (46-116); ANION GAP 5 (8-16); ASPARTATE AMINO TRANSFERASE 9 U/L (10-37); BILIRUBIN,TOTAL 0.3 MG/DL (0.1-1.0); BLOOD UREA NITROGEN 24 MG/DL (7-18); BUN/CREATININE RATIO 28.9 (6.6-38.0); CALCIUM 8.8 MG/DL (8.5-10.1); CHLORIDE 105 MMOL/L (99-107); CREATININE 0.83 MG/DL (0.40-0.90); GLUCOSE 116 MG/DL (70-104); POTASSIUM 3.7 MMOL/L (3.5-5.1); SODIUM 144 MMOL/L (135-145); TOTAL CARBON DIOXIDE 33.6 MMOL/L (24-32); eGFR 69 ML/MIN
[2019-02-24 12:46] LABS: MAGNESIUM 2.1 MG/DL (1.5-2.4)
[2019-02-24] MEDS ORDERED: LOSA100T57 PO (13:12)
[2019-02-24] MEDS ORDERED: CARV6.253 PO (13:14)
[2019-02-24] MEDS ORDERED: LOPE2CAP PO (13:14)
[2019-02-24] MEDS ORDERED: ALBU18HF2 INH (13:14)
[2019-02-24] MEDS ORDERED: nitroGLYCERIN 0.4mg/hour patch TD ONE (13:20)
--- NOTE | 2019-02-24 13:35 | NUR ---
OK PER DR BULL FOR PT TO EAT.
--- NOTE | 2019-02-24 13:41 | NUR ---
PT TO CT
[2019-02-24] MEDS ORDERED: mag hydrox/Alum hydrox/simeth 30ml oral suspension PO PRN (15:20)
[2019-02-24] MEDS ORDERED: acetaminophen 325mg tablet PO PRN (15:20)
[2019-02-24] MEDS ORDERED: ondansetron/PF 4mg/2ml inj IV PRN (15:20)
[2019-02-24] MEDS ORDERED: magnesium hydroxide 30ml (MOM) UD suspension PO PRN (15:20)
--- NOTE | 2019-02-24 18:17 | NUR ---
Problems reprioritized. Patient report given, questions answered & plan of care reviewed with Eliane LADD.
--- NOTE | 2019-02-24 18:29 | NUR ---
Problems reprioritized. Patient report given, questions answered & plan of care reviewed with Aspen LADD. Addendum: 02/24/19 at 1829 by Radha Taylor RN Report given to Eliane LADD
--- NOTE | 2019-02-24 18:29 | NUR ---
Patient in room PCU 3012. I have received report from Eloy and had the opportunity to ask questions and assume patient care.
[2019-02-24] MEDS ORDERED: ipratropium 0.5 MG/2.5ML nebule IH SCH (19:00)
[2019-02-24] MEDS: ipratropium/albuterol 3ml nebule NEB SCH ×2 (19:08→23:07)
[2019-02-24] MEDS: loperamide 2mg capsule PO SCH (19:19)
[2019-02-24] MEDS: carvedilol 6.25mg tablet PO SCH (19:19)
[2019-02-24] MEDS: heparin, porcine 5000 units/ml vial SQ SCH (19:20)
[2019-02-24 20:06] VITALS: BP 171/84
[2019-02-24 20:23] VITALS: BP 162/109
[2019-02-24] MEDS: hydrALAZINE 20mg/ml inj. IV PRN (21:14)
[2019-02-24 21:50] VITALS: BP 115/58
[2019-02-24 23:00] VITALS: BP 135/69
[2019-02-25] VITALS (7 sets, daily range): BP systolic 126–182; BP diastolic 56–105
[2019-02-25] MEDS: ipratropium/albuterol 3ml nebule NEB SCH ×6 (03:27→22:42)
--- NOTE | 2019-02-25 03:35 | NUR ---
Discussed with Dr. Keller about the patient having a forrester but no order in. He told me to put in the order for forrester protocol.
[2019-02-25 06:11] LABS: BASOPHILS # (AUTO) 0.1 X10'3 (0-0.2); BASOPHILS % (AUTO) 1.1 % (0-1); EOSINOPHILS # (AUTO) 0.3 X10'3 (0-0.9); HEMATOCRIT 35.1 % (35.0-45.0); HEMOGLOBIN 11.5 g/dl (12.0-16.0); LYMPHOCYTES # (AUTO) 1.9 X10'3 (1.1-4.8); LYMPHOCYTES % (AUTO) 22.4 % (21-51); MEAN CORPUSCULAR HEMOGLOBIN 31.3 PG (27.0-31.0); MEAN CORPUSCULAR HGB CONC 32.7 g/dL (33.0-36.5); MEAN CORPUSCULAR VOLUME 95.8 FL (78-98); MEAN PLATELET VOLUME 10.5 FL (7.4-10.4); MONOCYTES # (AUTO) 0.9 X10'3 (0-0.9); MONOCYTES % (AUTO) 10.9 % (2-12); NEUTROPHILS # (AUTO) 5.3 X10'3 (1.8-7.7); NEUTROPHILS % (AUTO) 62.6 % (42-75); PLATELET COUNT 251 X10'3 (140-440); RED BLOOD COUNT 3.67 X10'6 (4.20-5.60); RED CELL DISTRIBUTION WIDTH 14.1 % (11.5-14.5); WHITE BLOOD COUNT 8.4 X10'3 (4.5-11.0)
--- NOTE | 2019-02-25 06:17 | NUR ---
Problems reprioritized. Patient report given, questions answered & plan of care reviewed with Dariela.
[2019-02-25 06:18] LABS: ALBUMIN 2.6 G/DL (3.4-5.0); ANION GAP 4 (8-16); BLOOD UREA NITROGEN 18 MG/DL (7-18); BUN/CREATININE RATIO 23.7 (6.6-38.0); CALCIUM 8.6 MG/DL (8.5-10.1); CHLORIDE 109 MMOL/L (99-107); CREATININE 0.76 MG/DL (0.40-0.90); GLUCOSE 118 MG/DL (70-104); POTASSIUM 3.8 MMOL/L (3.5-5.1); SODIUM 147 MMOL/L (135-145); TOTAL CARBON DIOXIDE 34.4 MMOL/L (24-32); eGFR 76 ML/MIN
--- NOTE | 2019-02-25 06:22 | NUR ---
Patient in room PCU 3012. I have received report from Eliane LADD and had the opportunity to ask questions and assume patient care.
[2019-02-25 07:21] LABS: LARGE PLATELETS FEW; PLATELET ESTIMATE NORMAL
[2019-02-25] MEDS: carvedilol 6.25mg tablet PO SCH ×2 (07:34→19:15)
[2019-02-25] MEDS: FLUoxetine 20mg capsule PO SCH (07:34)
[2019-02-25] MEDS: losartan 50mg tablet PO SCH (07:34)
[2019-02-25] MEDS: loperamide 2mg capsule PO SCH ×2 (07:34→19:15)
[2019-02-25] MEDS: heparin, porcine 5000 units/ml vial SQ SCH ×2 (07:35→19:16)
[2019-02-25] MEDS: levoFLOXACIN-Levaquin 500mg/D5 100 ML IV SCH (07:36)
[2019-02-25] MEDS: prednisone 10mg tablet PO SCH (07:45)
[2019-02-25] MEDS ORDERED: non-formulary drug (Tiotropium Bromide* (Spiriva*) 18 MCG) IH SCH (08:00)
[2019-02-25] MEDS ORDERED: non-formulary drug (Losartan Potassium 1 TAB) PO SCH (08:00)
--- NOTE | 2019-02-25 15:45 | NUR ---
Discontinued forrester catheter. Tolerated well. Wick in place.
[2019-02-25] MEDS: hydrALAZINE 20mg/ml inj. IV PRN ×2 (16:49→23:41)
--- NOTE | 2019-02-25 16:51 | NUR ---
PAGER ID: [phone] MESSAGE: [phone] Love Slaughter Bedrest since admission. UTD activity level. Can we get a PT eval? Thanks! Kapil RAMSEY [phone]
--- NOTE | 2019-02-25 17:49 | NUR ---
Orientee documentation: I have reviewed and agree with interventions, assessments performed and documented by Herminia LADD. Orientee Medication Administration: For this medication-pass time frame, medication were reviewed, dispensed, administered and documented per hospital policy by Herminia LADD
--- NOTE | 2019-02-25 18:13 | NUR ---
Problems reprioritized. Patient report given, questions answered & plan of care reviewed with Shari LADD and Hector LADD.
--- NOTE | 2019-02-25 18:15 | NUR ---
Patient in room PCU 3012A. I have received report from WILBERTO Parrish and had the opportunity to ask questions and assume patient care. Will continue to monitor
[2019-02-25] MEDS: lactobacillus rhamnosus 10,000 MMU CELLS/CAPSULE PO SCH (19:15)
[2019-02-26 02:00] VITALS: BP 137/54
[2019-02-26] MEDS: ipratropium/albuterol 3ml nebule NEB SCH ×3 (02:36→11:37)
--- NOTE | 2019-02-26 05:12 | NUR ---
Orientee Medication Administration: For this medication-pass time frame, all medication were reviewed, dispensed, administered and documented per hospital policy by Hector LADD. Orientee documentation: I have reviewed all interventions, assessments performed and documented by Hector LADD.
[2019-02-26 05:24] LABS: BASOPHILS # (AUTO) 0.1 X10'3 (0-0.2); BASOPHILS % (AUTO) 1.2 % (0-1); EOSINOPHILS # (AUTO) 0.1 X10'3 (0-0.9); HEMATOCRIT 36.3 % (35.0-45.0); HEMOGLOBIN 11.9 g/dl (12.0-16.0); LYMPHOCYTES # (AUTO) 2.2 X10'3 (1.1-4.8); LYMPHOCYTES % (AUTO) 22.3 % (21-51); MEAN CORPUSCULAR HEMOGLOBIN 31.4 PG (27.0-31.0); MEAN CORPUSCULAR HGB CONC 32.8 g/dL (33.0-36.5); MEAN CORPUSCULAR VOLUME 95.6 FL (78-98); MEAN PLATELET VOLUME 10.8 FL (7.4-10.4); MONOCYTES % (AUTO) 9.8 % (2-12); NEUTROPHILS # (AUTO) 6.6 X10'3 (1.8-7.7); NEUTROPHILS % (AUTO) 65.7 % (42-75); PLATELET COUNT 266 X10'3 (140-440); RED CELL DISTRIBUTION WIDTH 13.8 % (11.5-14.5)
[2019-02-26 05:40] LABS: ALBUMIN 2.6 G/DL (3.4-5.0); ANION GAP 6 (8-16); BLOOD UREA NITROGEN 18 MG/DL (7-18); BUN/CREATININE RATIO 21.4 (6.6-38.0); CALCIUM 8.9 MG/DL (8.5-10.1); CHLORIDE 104 MMOL/L (99-107); CREATININE 0.84 MG/DL (0.40-0.90); GLUCOSE 107 MG/DL (70-104); SODIUM 142 MMOL/L (135-145); TOTAL CARBON DIOXIDE 31.6 MMOL/L (24-32); eGFR 68 ML/MIN
[2019-02-26 06:00] VITALS: BP 186/80
--- NOTE | 2019-02-26 06:13 | NUR ---
Problems reprioritized. Patient report given, questions answered & plan of care reviewed with Sangeeta LADD & Faby LADD.
--- NOTE | 2019-02-26 06:34 | NUR ---
Patient in room PCU 3012. I have received report from Shari LADD and Hector RN and had the opportunity to ask questions and assume patient care. Pt is resting on room air, A&O X4, in no apparent distress, will continue to monitor.
[2019-02-26] MEDS: hydrALAZINE 20mg/ml inj. IV PRN (07:01)
[2019-02-26] MEDS: loperamide 2mg capsule PO SCH (08:00)
[2019-02-26] MEDS: prednisone 10mg tablet PO SCH (09:21)
[2019-02-26] MEDS: levoFLOXACIN-Levaquin 500mg/D5 100 ML IV SCH (09:21)
[2019-02-26] MEDS: lactobacillus rhamnosus 10,000 MMU CELLS/CAPSULE PO SCH (09:21)
[2019-02-26] MEDS: losartan 50mg tablet PO SCH (09:21)
[2019-02-26] MEDS: carvedilol 6.25mg tablet PO SCH (09:21)
[2019-02-26] MEDS: FLUoxetine 20mg capsule PO SCH (09:21)
[2019-02-26] MEDS: heparin, porcine 5000 units/ml vial SQ SCH (09:22)
[2019-02-26] MEDS ORDERED: PRED10TA PO (10:53)
[2019-02-26] MEDS ORDERED: CEFD300C3 PO (10:53)
[2019-02-26 11:00] VITALS: BP 135/68
--- NOTE | 2019-02-26 13:00 | NUR ---
O2 Sat at rest on room air:_88__% If below 89%: Recovery O2 Sat at rest on __2_LPM:93___%: via nasal cannula. No further documentation is necessary.
--- NOTE | 2019-02-26 15:00 | NUR ---
Pt stable for discharge per MD orders. Reviewed discharge instructions with pt and pt's daughter. New prescription delivered via [facility] bedside. Palliative care nurse will be contacting pt on Friday March 01, 2019 and pt and pt's daughter aware of this. [facility] delivered portable O2 prior to discharge. IV discontinued with canula intact and tele discontinued. Pt alert and oriented X 4 with stable vital signs. Pt transferred to private care driven by her daughter via wheelchair.
== END 2019-02-26 15:10 | disposition home health service (06) | DRG 189 ==
LOC: ER 10:38 → PCU 3S 16:33 → CMPBEDREQ 19:50
PROVIDERS: ADMIT Family Medicine; ATTEND Family Medicine
DX: J96.21 Acute and chronic respiratory failure with hypoxia (principal); J44.1 Chronic obstructive pulmonary disease with (acute) exacerbation; N39.0 Urinary tract infection, site not specified; I13.0 Hypertensive heart and chronic kidney disease with heart failure and stage 1 through stage 4 chronic kidney disease, or unspecified chronic kidney disease; F15.90 Other stimulant use, unspecified, uncomplicated; F32.9 Major depressive disorder, single episode, unspecified; I50.9 Heart failure, unspecified; K21.9 Gastro-esophageal reflux disease without esophagitis; I16.0 Hypertensive urgency; B96.20 Unspecified Escherichia coli [E. coli] as the cause of diseases classified elsewhere; Z66 Do not resuscitate; N18.9 Chronic kidney disease, unspecified; Z51.5 Encounter for palliative care; Z86.73 Personal history of transient ischemic attack (TIA), and cerebral infarction without residual deficits; Z87.891 Personal history of nicotine dependence; Z88.0 Allergy status to penicillin; Z88.5 Allergy status to narcotic agent; Z95.820 Peripheral vascular angioplasty status with implants and grafts; Z88.8 Allergy status to other drugs, medicaments and biological substances; Z87.01 Personal history of pneumonia (recurrent); Z95.5 Presence of coronary angioplasty implant and graft; Z98.51 Tubal ligation status
CPT/HCPCS: 36415; 36600; 70450; 71045; 80048; 80053; 81001; 82803; 83605; 83735; 83880; 84145; 84484; 85018; 85025; 85610; 85730; 87040; 87077; 87081; 87088; 87186; 93005; 93306; 94640; 94760; 96365; 96366; 96368; 99285; G0378; J0360; J1644; J1956; J3490; J7512

== ENCOUNTER 2019-06-26 10:31 | Inpatient (IN) | payer MEDICARE, MEDICAID ==
[~2019-06-26] VITALS: Ht 165.1 cm; Wt 85.0 kg
[~2019-06-26 10:31] MED LIST changes: +ALBU18HF2 INH; +CARV6.253 PO; -CHOL10002 PO; +LOPE2CAP PO; +LOSA100T57 PO; -LOSA50TA64 PO; +PRED10TA PO; -TRAZ-251 PO
[2019-06-26 11:33] LABS: EOSINOPHILS # (AUTO) 0.2 X10'3 (0-0.9); EOSINOPHILS % (AUTO) 1.5 % (0-6); WHITE BLOOD COUNT 10.9 X10'3 (4.5-11.0)
[2019-06-26 11:34] LABS: BASOPHILS % (AUTO) 0.3 % (0-1); HEMATOCRIT 37.1 % (35.0-45.0); HEMOGLOBIN 11.8 g/dl (12.0-16.0); LYMPHOCYTES # (AUTO) 1.4 X10'3 (1.1-4.8); LYMPHOCYTES % (AUTO) 12.7 % (21-51); MEAN CORPUSCULAR HEMOGLOBIN 30.8 PG (27.0-31.0); MEAN CORPUSCULAR HGB CONC 31.9 g/dL (33.0-36.5); MEAN CORPUSCULAR VOLUME 96.5 FL (78-98); MEAN PLATELET VOLUME 11.1 FL (7.4-10.4); MONOCYTES # (AUTO) 0.7 X10'3 (0-0.9); MONOCYTES % (AUTO) 6.9 % (2-12); NEUTROPHILS # (AUTO) 8.6 X10'3 (1.8-7.7); NEUTROPHILS % (AUTO) 78.6 % (42-75); PLATELET COUNT 205 X10'3 (140-440); RED BLOOD COUNT 3.85 X10'6 (4.20-5.60)
[2019-06-26 11:49] LABS: PARTIAL THROMBOPLASTIN TIME 24 SECONDS (22-32)
--- NOTE | 2019-06-26 11:50 | NUR ---
Tele-neuro came on and evaluated pt. will talk with ER doctor.
[2019-06-26 11:53] LABS: LARGE PLATELETS FEW; PLATELET ESTIMATE NORMAL
[2019-06-26 11:54] LABS: ACANTHOCYTES 1+; ALANINE AMINOTRANSFERASE 27 U/L (12-78); ALBUMIN 3.1 G/DL (3.4-5.0); ALKALINE PHOSPHATASE 68 IU/L (46-116); ANION GAP 3 (8-16); ASPARTATE AMINO TRANSFERASE 19 U/L (10-37); BILIRUBIN,TOTAL 0.3 MG/DL (0.1-1.0); BLOOD UREA NITROGEN 17 MG/DL (7-18); BUN/CREATININE RATIO 19.8 (6.6-38.0); CHLORIDE 106 MMOL/L (99-107); CREATININE 0.86 MG/DL (0.40-0.90); GLUCOSE 120 MG/DL (70-104); POTASSIUM 4.1 MMOL/L (3.5-5.1); SCHISTOCYTES FEW; SODIUM 150 MMOL/L (135-145); STOMATOCYTES 1+; TOTAL PROTEIN 6.3 G/DL (6.4-8.2); TROPONIN I < 0.04 NG/ML (0.0-0.05); eGFR 66 ML/MIN
[2019-06-26 12:00] LABS: TOTAL CARBON DIOXIDE 41.5 MMOL/L (24-32)
[2019-06-26] MEDS ORDERED: TRAZ-251 PO (12:15)
[2019-06-26] MEDS ORDERED: iohexol 350MG/ML 100ml bottle IV ONE (12:18)
[2019-06-26 12:28] LABS: CLARITY,URINE SLIGHTLY CLOUDY (Clear); COLOR,URINE YELLOW (Yellow); GLUCOSE, URINE NEGATIVE (Neg); KETONES,URINE NEGATIVE (Neg); LEUKOCYTE ESTERASE ,URINE TRACE (Neg); NITRITES, URINE POSITIVE (Neg); OCCULT BLOOD,URINE NEGATIVE (Neg); PROTEIN,URINE 30 mg/dl (Neg); UROBILINOGEN,URINE 0.2 E.U/dL (0.2-1.0)
[2019-06-26 12:31] LABS: UA COLLECTION TYPE STRAIGHT CATH
[2019-06-26 12:36] LABS: ABG BASE EXCESS 12.4 mmol/L (-2.0-3.0); ABG HCO3 41.6 mmol/L (22.0-26.0); ABG OXYGEN SATURATION 91.9 % (95-98); ABG PCO2 (T) 80.5 mmHg (35.0-45.0); ABG PH (T) 7.331 (7.350-7.450); ABG PO2 (T) 62.5 mmHg (83-108); ALLEN'S TEST Positive; FCOHb 1.1 % (0.5-1.5); FLOW 2 L/min; FMetHb 0.2 % (0.3-1.12); FO2Hb 90.7 % (94-100); TOTAL HEMOGLOBIN 12.5 G/dl (12.0-16.0)
[2019-06-26 12:42] LABS: SQUAMOUS EPITHELIAL CELL,UR MANY /LPF (FEW)
[2019-06-26 12:43] LABS: WBC,URINE 20-30 /HPF (0-4)
[2019-06-26 12:44] LABS: BACTERIA,URINE 4+ /HPF (Neg); RBC,URINE 0-2 /HPF (0-2); WBC CLUMPS,URINE FEW /HPF (NEGATIVE)
[2019-06-26] MEDS ORDERED: ipratropium/albuterol 3ml nebule NEB ONE (12:45)
[2019-06-26] MEDS ORDERED: aspirin 325mg tablet PO ONE (14:15)
[2019-06-26 14:31] LABS: ABG BASE EXCESS 9.6 mmol/L (-2.0-3.0); ABG HCO3 38.5 mmol/L (22.0-26.0); ABG OXYGEN SATURATION 96.6 % (95-98); ABG PCO2 (T) 77.3 mmHg (35.0-45.0); ABG PH (T) 7.315 (7.350-7.450); ALLEN'S TEST Positive; FCOHb 1.1 % (0.5-1.5); FMetHb 0.3 % (0.3-1.12); FO2Hb 95.2 % (94-100); PEEP 5 cm H2O; RESPIRATORY RATE 18 b/min; TOTAL HEMOGLOBIN 12.1 G/dl (12.0-16.0)
[2019-06-26] MEDS ORDERED: CefTRIAXone/D5W-Rocephin 1gm 50 ML IV ONE (14:55)
[2019-06-26] MEDS ORDERED: mag hydrox/Alum hydrox/simeth 30ml oral suspension PO PRN (15:10)
[2019-06-26] MEDS ORDERED: acetaminophen 325mg tablet PO PRN (15:10)
[2019-06-26] MEDS ORDERED: magnesium hydroxide 30ml (MOM) UD suspension PO PRN (15:10)
[2019-06-26] MEDS ORDERED: morphine 2 MG/ML inj. syringe IV PRN ×2 (15:10)
[2019-06-26] MEDS ORDERED: ondansetron/PF 4mg/2ml inj IV PRN (15:10)
[2019-06-26] MEDS ORDERED: albuterol 2.5 MG/3 ML nebule NEB PRN (15:20)
[2019-06-26] MEDS: furosemide 20 MG/2 ML vial IV SCH ×2 (15:47→19:50)
[2019-06-26] MEDS: nitroGLYCERIN 0.4mg/hour patch TD SCH (15:48)
[2019-06-26] MEDS: dextrose 5%-water 1,000 ML IV SCH (15:50)
--- NOTE | 2019-06-26 15:53 | NUR ---
Patient in room ED 10. I have received report from WILBERTO Roberts and had the opportunity to ask questions and assume patient care.
--- NOTE | 2019-06-26 16:04 | NUR ---
Paged Dr. Thomas regarding patient unable to pass swallow evaluation and order for HH diet. Patient also does not have any orders to continue BiPAP and possible need to continue.
--- NOTE | 2019-06-26 16:08 | NUR ---
Spoke with Dr. Thomas regarding patients diet order and he stated that he was not concerned regarding patient eating, she needs to be on BiPAP for the elevated CO2. I asked if he wanted me to change the order for HH diet and he stated, "Well if she's not awake enough to eat, she shouldn't be fed." Dr. Thomas also stated to place order to BiPAP per protocol. Will place order for BiPAP per Dr Thomas request.
[2019-06-26 16:30] VITALS: BP 189/90
--- NOTE | 2019-06-26 16:56 | NUR ---
Called Dr Thomas to inform him of the pts ABG's. Ph has gotten more acidic while being on the BiPAP, the CO2 has gone down from 80.5 to 77 in two hours and the HCO3 has also decreased. I stated that I feared the pt would continue to get more acidic on the BiPAP. He stated he wanted to keep her on the BiPAP and get another ABG in about 2 hours. Pt has been easy to arouse for all RT's. Will get another ABG in two hours. Addendum: 06/26/19 at 1707 by RT Amended: Links added.
[2019-06-26 17:50] LABS: ABG BASE EXCESS 13.7 mmol/L (-2.0-3.0); ABG HCO3 43.1 mmol/L (22.0-26.0); ABG OXYGEN SATURATION 95.6 % (95-98); ABG PCO2 (T) 83.8 mmHg (35.0-45.0); ABG PH (T) 7.329 (7.350-7.450); ABG PO2 (T) 79.1 mmHg (83-108); ALLEN'S TEST Positive; FCOHb 0.9 % (0.5-1.5); FMetHb 0.1 % (0.3-1.12); FO2Hb 94.6 % (94-100); MINUTE VOLUME 7 L/min; RESPIRATORY RATE 18 b/min; RESPIRATORY RATE (OBSERVED) 20 b/min; TIDAL VOLUME 301 mL; TOTAL HEMOGLOBIN 12.1 G/dl (12.0-16.0)
--- NOTE | 2019-06-26 18:02 | NUR ---
PAGED DR MEYER WITH NEW ABG RESULTS. pH:7.329, CO2: 83.8, PO2:79.1, HCO3: 43.1. NO NEW ORDERS AT THIS TIME.
--- NOTE | 2019-06-26 18:10 | NUR ---
Sent to Dr Thomas PAGER ID: [phone] MESSAGE: RE: Maddie Slaughter [id number]. Latest ABG PCO2 83.8, BP 162/98. - Haylee/Addison [id number]
--- NOTE | 2019-06-26 18:32 | NUR ---
Problems reprioritized. Patient report given, questions answered & plan of care reviewed with WILBERTO Jaime.
[2019-06-26 19:00] VITALS: BP 160/66
[2019-06-26] MEDS: carvedilol 6.25mg tablet PO SCH (19:50)
[2019-06-26] MEDS: loperamide 2mg capsule PO SCH (19:50)
[2019-06-26 21:20] LABS: ABG BASE EXCESS 14.3 mmol/L (-2.0-3.0); ABG HCO3 43.3 mmol/L (22.0-26.0); ABG OXYGEN SATURATION 96.6 % (95-98); ABG PCO2 (T) 75.9 mmHg (35.0-45.0); ABG PH (T) 7.369 (7.350-7.450); ABG PO2 (T) 82.4 mmHg (83-108); ALLEN'S TEST Positive; FMetHb 0.2 % (0.3-1.12); FO2Hb 95.4 % (94-100); PATIENT TEMPERATURE 35.9; RESPIRATORY RATE 18 b/min; RESPIRATORY RATE (OBSERVED) 20 b/min; TOTAL HEMOGLOBIN 12.3 G/dl (12.0-16.0)
[2019-06-26 23:00] VITALS: BP_SYST 161; BP_SYST 196; BP_DIAS 78; BP_DIAS 87
[2019-06-26] MEDS ORDERED: carvedilol 6.25mg tablet PO ONE (23:25)
[2019-06-27] VITALS (8 sets, daily range): BP systolic 137–182; BP diastolic 62–97
--- NOTE | 2019-06-27 00:49 | NUR ---
SBP reached 200. Dr. Gibbons notified. Patient did not get 2000 coreg dose because she was bi-pap dependent and not alert enough to safely swallow. Her condition is now improved. Coreg ordered. Doc aware that HR is in upper 50's
[2019-06-27] MEDS: dextrose 5%-water 1,000 ML IV SCH ×2 (05:00→11:25)
[2019-06-27 06:28] LABS: BASOPHILS # (AUTO) 0.1 X10'3 (0-0.2); EOSINOPHILS # (AUTO) 0.1 X10'3 (0-0.9); HEMOGLOBIN 11.3 g/dl (12.0-16.0)
[2019-06-27 06:34] LABS: EOSINOPHILS % (AUTO) 1.1 % (0-6); HEMATOCRIT 34.6 % (35.0-45.0); LYMPHOCYTES # (AUTO) 1.6 X10'3 (1.1-4.8); LYMPHOCYTES % (AUTO) 17.8 % (21-51); MEAN CORPUSCULAR HEMOGLOBIN 31.2 PG (27.0-31.0); MEAN CORPUSCULAR HGB CONC 32.5 g/dL (33.0-36.5); MEAN CORPUSCULAR VOLUME 95.9 FL (78-98); MEAN PLATELET VOLUME 11.1 FL (7.4-10.4); NEUTROPHILS # (AUTO) 6.4 X10'3 (1.8-7.7); NEUTROPHILS % (AUTO) 69.1 % (42-75); PLATELET COUNT 172 X10'3 (140-440); RED BLOOD COUNT 3.61 X10'6 (4.20-5.60); RED CELL DISTRIBUTION WIDTH 14.5 % (11.5-14.5); WHITE BLOOD COUNT 9.2 X10'3 (4.5-11.0)
--- NOTE | 2019-06-27 06:39 | NUR ---
Patient in room PCU 3016. I have received report from WILBERTO Jaime and had the opportunity to ask questions and assume patient care. Pt sleeping. Will continue to monitor.
[2019-06-27 07:00] LABS: ANISOCYTOSIS 1+; LARGE PLATELETS FEW; PLATELET ESTIMATE NORMAL; POIKILOCYTOSIS FEW
[2019-06-27 07:11] LABS: ALBUMIN 2.7 G/DL (3.4-5.0); ANION GAP 4 (8-16); BLOOD UREA NITROGEN 16 MG/DL (7-18); BUN/CREATININE RATIO 18.4 (6.6-38.0); CALCIUM 8.5 MG/DL (8.5-10.1); CHLORIDE 101 MMOL/L (99-107); CREATININE 0.87 MG/DL (0.40-0.90); GLUCOSE 115 MG/DL (70-104); POTASSIUM 3.8 MMOL/L (3.5-5.1); SODIUM 142 MMOL/L (135-145); TOTAL CARBON DIOXIDE 37.5 MMOL/L (24-32); eGFR 65 ML/MIN
[2019-06-27] MEDS: furosemide 20 MG/2 ML vial IV SCH ×2 (09:04→19:04)
[2019-06-27] MEDS: enoxaparin 40mg/0.4ml syringe SUBCUT SCH (09:26)
[2019-06-27] MEDS: FLUoxetine 20mg capsule PO SCH (09:26)
[2019-06-27] MEDS: CefTRIAXone/D5W-Rocephin 1gm 50 ML IV SCH (09:27)
[2019-06-27] MEDS: loperamide 2mg capsule PO SCH ×2 (09:27→19:04)
[2019-06-27] MEDS: losartan 50mg tablet PO SCH (09:27)
[2019-06-27] MEDS: carvedilol 6.25mg tablet PO SCH ×2 (09:27→19:04)
[2019-06-27] MEDS: nitroGLYCERIN 0.4mg/hour patch TD SCH (09:28)
--- NOTE | 2019-06-27 14:41 | NUR ---
Sent to Dr Thomas PAGER ID: [phone] MESSAGE: RE: Maddie Slaughter [id number]. FYI pt's 24 hr tele ends at 1500. -Haylee [phone]
[2019-06-27] MEDS ORDERED: pneumococcal 23-VAL P-sac vacc 25 mcg/0.5ml vial IMVAC ONE (15:50)
[2019-06-27] MEDS ORDERED: FLU VACC QS2019-20 36MOS UP/PF 60 MCG/0.5 ML SYRINGE IMVAC ONE (15:50)
--- NOTE | 2019-06-27 16:13 | NUR ---
Patient in room PCU 3016. I have received report from WILBERTO Leach and had the opportunity to ask questions and assume patient care.
--- NOTE | 2019-06-27 18:09 | NUR ---
Problems reprioritized. Patient report given, questions answered & plan of care reviewed with WILBERTO Hernandez.
--- NOTE | 2019-06-27 18:12 | NUR ---
Patient in room U 3016. I have received report from Alejandra LADD and had the opportunity to ask questions and assume patient care. Addendum: 06/27/19 at 1813 by Dian Pro RN wrong patient
--- NOTE | 2019-06-27 18:13 | NUR ---
Patient in room PCU 3016. I have received report from Ghassan LADD and had the opportunity to ask questions and assume patient care.
[2019-06-27] MEDS: lactobacillus rhamnosus 10,000 MMU CELLS/CAPSULE PO SCH (19:04)
--- NOTE | 2019-06-28 02:05 | NUR ---
Notified MD of BP of 187/87. MD states to continue to monitor and have daytime doctors address possibly increasing her PO medication dosages.
[2019-06-28 02:30] VITALS: BP 187/87
--- NOTE | 2019-06-28 02:33 | NUR ---
Problems reprioritized. Patient report given, questions answered & plan of care reviewed with Eliane LADD and Rajiv LADD.
--- NOTE | 2019-06-28 02:36 | NUR ---
Patient in room PCU 3016. I have received report from Mary LADD and had the opportunity to ask questions and assume patient care.
--- NOTE | 2019-06-28 02:40 | NUR ---
Received pt from Mary LADD I agree with her assessment charted 06/27/2019 at 1944
[2019-06-28 06:00] VITALS: BP 234/110
[2019-06-28 06:16] LABS: BASOPHILS # (AUTO) 0.1 X10'3 (0-0.2); BASOPHILS % (AUTO) 1.2 % (0-1); EOSINOPHILS # (AUTO) 0.2 X10'3 (0-0.9); EOSINOPHILS % (AUTO) 2.8 % (0-6); HEMATOCRIT 36.4 % (35.0-45.0); HEMOGLOBIN 11.7 g/dl (12.0-16.0); LYMPHOCYTES # (AUTO) 2.2 X10'3 (1.1-4.8); LYMPHOCYTES % (AUTO) 27.2 % (21-51); MEAN CORPUSCULAR HGB CONC 32.1 g/dL (33.0-36.5); MEAN CORPUSCULAR VOLUME 96.6 FL (78-98); MEAN PLATELET VOLUME 11.2 FL (7.4-10.4); MONOCYTES % (AUTO) 12.2 % (2-12); NEUTROPHILS # (AUTO) 4.5 X10'3 (1.8-7.7); NEUTROPHILS % (AUTO) 56.6 % (42-75); PLATELET COUNT 198 X10'3 (140-440); RED BLOOD COUNT 3.77 X10'6 (4.20-5.60); RED CELL DISTRIBUTION WIDTH 14.7 % (11.5-14.5)
--- NOTE | 2019-06-28 06:23 | NUR ---
Problems reprioritized. Patient report given, questions answered & plan of care reviewed with Haylee RN.
--- NOTE | 2019-06-28 06:30 | NUR ---
Patient in room PCU 3016. I have received report from Eliane RN and WILBERTO Vance and had the opportunity to ask questions and assume patient care. Pt is sleeping. VSS. Will continue to monitor.
--- NOTE | 2019-06-28 06:31 | NUR ---
Pt BP on mobile monitor 250/101, then 232/113, and a manual of 234/110. Called noc hospitalist, Dr Blanton, and he prescribed 10mg IVP Hydralazine one time Now, and stated to inform the day hospitalist so that they may adjust her PO meds.
[2019-06-28] MEDS ORDERED: hydrALAZINE 20mg/ml inj. IV ONE (06:35)
[2019-06-28 06:37] LABS: GIANT PLATELET FEW; LARGE PLATELETS FEW; PLATELET ESTIMATE NORMAL
[2019-06-28 06:40] LABS: ALBUMIN 2.8 G/DL (3.4-5.0); BLOOD UREA NITROGEN 13 MG/DL (7-18); BUN/CREATININE RATIO 15.5 (6.6-38.0); CALCIUM 8.4 MG/DL (8.5-10.1); CHLORIDE 102 MMOL/L (99-107); CREATININE 0.84 MG/DL (0.40-0.90); GLUCOSE 101 MG/DL (70-104); POTASSIUM 3.4 MMOL/L (3.5-5.1); SODIUM 147 MMOL/L (135-145); eGFR 68 ML/MIN
[2019-06-28 06:55] LABS: ANION GAP -1 (8-16)
[2019-06-28 07:03] LABS: TOTAL CARBON DIOXIDE 46.1 MMOL/L (24-32)
--- NOTE | 2019-06-28 07:12 | NUR ---
Sent to Dr Thomas PAGER ID: [phone] MESSAGE: RE: Maddie Slaughter [id number]. CRITICAL VALUE: CO2 46.1. Mobile monitor BP 232/113, 250/101, manual BP 234/110; given 10mg hydralazine IV. New BP after 20 minutes: 251/102. -Haylee [phone]
--- NOTE | 2019-06-28 07:30 | NUR ---
Pt placed on BiPAP due to elevated CO2 levels.
[2019-06-28] MEDS: CefTRIAXone/D5W-Rocephin 1gm 50 ML IV SCH (08:29)
[2019-06-28] MEDS: enoxaparin 40mg/0.4ml syringe SUBCUT SCH (08:30)
[2019-06-28] MEDS: furosemide 20 MG/2 ML vial IV SCH ×2 (08:30→20:40)
[2019-06-28] MEDS: lactobacillus rhamnosus 10,000 MMU CELLS/CAPSULE PO SCH ×2 (08:31→20:40)
[2019-06-28] MEDS: FLUoxetine 20mg capsule PO SCH (08:31)
[2019-06-28] MEDS: loperamide 2mg capsule PO SCH ×2 (08:31→20:40)
[2019-06-28] MEDS: losartan 50mg tablet PO SCH (08:31)
[2019-06-28] MEDS: nitroGLYCERIN 0.4mg/hour patch TD SCH (08:31)
[2019-06-28] MEDS: carvedilol 6.25mg tablet PO SCH ×2 (08:31→20:40)
[2019-06-28] MEDS ORDERED: cloNIDine 0.1 mg tablet PO ONE (09:00)
--- NOTE | 2019-06-28 09:15 | NUR ---
BiPAP taken off pt by Dr Thomas. He is aware of her CO2 levels, and is not concerned.
[2019-06-28] MEDS ORDERED: pneumococcal 23-VAL P-sac vacc 25 mcg/0.5ml vial IMVAC ONE (10:00)
[2019-06-28] MEDS ORDERED: FLU VACC QS2019-20 36MOS UP/PF 60 MCG/0.5 ML SYRINGE IMVAC ONE (10:00)
[2019-06-28 11:00] VITALS: BP 149/62
[2019-06-28] MEDS: ipratropium 0.5 MG/2.5ML nebule IH PRN ×2 (11:50→21:29)
--- NOTE | 2019-06-28 12:03 | NUR ---
Sent to Dr Thomas PAGER ID: [phone] MESSAGE: RE: Maddie Slaughter [phone]. RT recommends Q6hr Tx. -Haylee [phone]
--- NOTE | 2019-06-28 13:25 | NUR ---
Pt's daughter doesn't want the pt to go to rehab because the pt gets depressed and declines. The pt's daughter is the pt's caregiver. She prefers home health for the pt. She is equipped with a hospital bed, nursing specialist/recliner chair, shower chair, toilet seat, O2 machine with a refill station for portable tanks at home.
[2019-06-28 15:00] VITALS: BP 151/75
--- NOTE | 2019-06-28 16:45 | NUR ---
Malnutrition consult: Pt seen at bedside denies any wt loss and is unsure of her UBW. Current wt is stable per wt hx. Pt on heart healthy diet with fluctuating PO intake, documented with 25-50% yesterday, 0% at breakfast today, and up to 75% at lunch. 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 Pt with no decrease in muscle strength, no edema, and no visible fat/muscle wasting. Pt currently does not meet criteria for malnutrition. Pt provided with alternative heart healthy menu to provide additional food options and optimize PO intake. Pt requests cottage cheese QD at dinner, d/w dietary. LBM 06/23 however pt reports unsure of when LBM was and denies constipation/GI symptoms at this time. RD contact information provided. Will continue to follow. Addendum: 06/28/19 at [address] Amended: Links added.
[2019-06-28] MEDS ORDERED: potassium Cl 20 mEq SR tablet PO ONE (17:45)
[2019-06-28 18:30] VITALS: BP 155/89
--- NOTE | 2019-06-28 18:37 | NUR ---
Patient in room PCU 3016. I have received report from Haylee LADD and had the opportunity to ask questions and assume patient care.
[2019-06-28 22:30] VITALS: BP 139/77
[2019-06-29 02:30] VITALS: BP 133/62
[2019-06-29 05:39] LABS: EOSINOPHILS # (AUTO) 0.2 X10'3 (0-0.9); HEMOGLOBIN 11.9 g/dl (12.0-16.0); LYMPHOCYTES # (AUTO) 0.4 X10'3 (1.1-4.8)
[2019-06-29 05:42] LABS: BASOPHILS # (AUTO) 0.1 X10'3 (0-0.2); BASOPHILS % (AUTO) 1.3 % (0-1); EOSINOPHILS % (AUTO) 2.7 % (0-6); HEMATOCRIT 36.7 % (35.0-45.0); LYMPHOCYTES % (AUTO) 4.8 % (21-51); MEAN CORPUSCULAR HEMOGLOBIN 30.9 PG (27.0-31.0); MEAN CORPUSCULAR HGB CONC 32.3 g/dL (33.0-36.5); MEAN CORPUSCULAR VOLUME 95.5 FL (78-98); MEAN PLATELET VOLUME 11.1 FL (7.4-10.4); MONOCYTES # (AUTO) 0.4 X10'3 (0-0.9); MONOCYTES % (AUTO) 5.3 % (2-12); NEUTROPHILS # (AUTO) 6.8 X10'3 (1.8-7.7); NEUTROPHILS % (AUTO) 85.9 % (42-75); PLATELET COUNT 182 X10'3 (140-440); RED BLOOD COUNT 3.84 X10'6 (4.20-5.60); RED CELL DISTRIBUTION WIDTH 14.7 % (11.5-14.5)
--- NOTE | 2019-06-29 05:46 | NUR ---
Orientee documentation: I have reviewed and agree with all interventions, assessments performed and documented by Rajiv LADD.
[2019-06-29 05:49] LABS: ALBUMIN 2.8 G/DL (3.4-5.0); BLOOD UREA NITROGEN 16 MG/DL (7-18); BUN/CREATININE RATIO 17.4 (6.6-38.0); CALCIUM 8.7 MG/DL (8.5-10.1); CHLORIDE 100 MMOL/L (99-107); CREATININE 0.92 MG/DL (0.40-0.90); GLUCOSE 105 MG/DL (70-104); POTASSIUM 3.7 MMOL/L (3.5-5.1); SODIUM 147 MMOL/L (135-145); eGFR 61 ML/MIN
[2019-06-29 06:00] VITALS: BP 160/66
--- NOTE | 2019-06-29 06:15 | NUR ---
Patient in room PCU 3016B. I have received report from Rajiv LADD and Eliane RN and had the opportunity to ask questions and assume patient care.
--- NOTE | 2019-06-29 06:17 | NUR ---
Problems reprioritized. Patient report given, questions answered & plan of care reviewed with Jerica LADD.
[2019-06-29 06:30] LABS: ANION GAP -1 (8-16)
[2019-06-29 06:34] LABS: TOTAL CARBON DIOXIDE 48.1 MMOL/L (24-32)
[2019-06-29 07:39] LABS: LARGE PLATELETS MODERATE; PLATELET ESTIMATE NORMAL
[2019-06-29] MEDS: losartan 50mg tablet PO SCH (07:55)
[2019-06-29] MEDS: lactobacillus rhamnosus 10,000 MMU CELLS/CAPSULE PO SCH ×2 (07:55→20:08)
[2019-06-29] MEDS: loperamide 2mg capsule PO SCH ×2 (07:55→20:08)
[2019-06-29] MEDS: carvedilol 6.25mg tablet PO SCH ×2 (07:56→20:08)
[2019-06-29] MEDS: furosemide 20 MG/2 ML vial IV SCH ×2 (07:56→20:08)
[2019-06-29] MEDS: enoxaparin 40mg/0.4ml syringe SUBCUT SCH (07:56)
[2019-06-29] MEDS: nitroGLYCERIN 0.4mg/hour patch TD SCH (07:56)
[2019-06-29] MEDS: FLUoxetine 20mg capsule PO SCH (07:56)
[2019-06-29] MEDS: CefTRIAXone/D5W-Rocephin 1gm 50 ML IV SCH (07:57)
--- NOTE | 2019-06-29 08:00 | NUR ---
Spoke to Dr Thomas regarding patients venous CO2 trending up. He does not want another ABG and stated that the lasix is what is causing the venous CO2 increase and said patient can continue to switch between BiPap and NC. Will monitor closely
[2019-06-29 11:00] VITALS: BP 147/74
--- NOTE | 2019-06-29 11:20 | NUR ---
Paged Dr Thomas for O2 orders PAGER ID: [phone] MESSAGE: Jerica dhillon [phone]. Love Gupta [id number]. Can we have O2 parameter order please? We only have BiPap orders. Thank you!
[2019-06-29 15:00] VITALS: BP 190/88
--- NOTE | 2019-06-29 15:34 | NUR ---
Paged hospitalist, Dr. Thomas, lukas patient's blood pressure. PAGER ID: [phone] MESSAGE: Chelo x [phone]. LUKAS Hernández, P. 3011. Blood arrived from [facility], need order to transfuse ADI and for you to sign consent. Thank you! Addendum: 06/29/19 at 1601 by Jerica De Los Santos RN Ignore above page, incorrect page copy and pasted
--- NOTE | 2019-06-29 15:40 | NUR ---
Patients BP 190>88. Paged Dr Thomas regarding BP and received order for hydralazine 10 mg IV q6 PRN for SBP greater than 180 Addendum: 06/29/19 at 1604 by Jerica De Los Santos RN INCORRECT PARAMETER. ORDER IS FOR SBP GREATER THAN 160
[2019-06-29] MEDS: hydrALAZINE 20mg/ml inj. IV PRN (15:46)
--- NOTE | 2019-06-29 18:00 | NUR ---
Patient in room PCU 3016. I have received report from Jerica LADD and Chelo LADD and had the opportunity to ask questions and assume patient care.
--- NOTE | 2019-06-29 18:14 | NUR ---
Problems reprioritized. Patient report given, questions answered & plan of care reviewed with Myranda LADD.
--- NOTE | 2019-06-29 18:17 | NUR ---
New hire documentation: I have reviewed and agree with all interventions, assessments performed and documented by Chelo LADD.
[2019-06-29 19:00] VITALS: BP 174/80
[2019-06-29 23:00] VITALS: BP 183/81
[2019-06-30 03:00] VITALS: BP 183/81
[2019-06-30 05:25] LABS: BASOPHILS # (AUTO) 0.1 X10'3 (0-0.2); HEMOGLOBIN 12.2 g/dl (12.0-16.0); LYMPHOCYTES # (AUTO) 0.9 X10'3 (1.1-4.8); MONOCYTES # (AUTO) 0.6 X10'3 (0-0.9); NEUTROPHILS # (AUTO) 2.2 X10'3 (1.8-7.7); WHITE BLOOD COUNT 3.8 X10'3 (4.5-11.0)
[2019-06-30 05:28] LABS: BASOPHILS % (AUTO) 1.6 % (0-1); EOSINOPHILS % (AUTO) 0.9 % (0-6); HEMATOCRIT 37.2 % (35.0-45.0); LYMPHOCYTES % (AUTO) 23.4 % (21-51); MEAN CORPUSCULAR HEMOGLOBIN 31.2 PG (27.0-31.0); MEAN CORPUSCULAR HGB CONC 32.8 g/dL (33.0-36.5); MEAN CORPUSCULAR VOLUME 95.2 FL (78-98); MEAN PLATELET VOLUME 10.4 FL (7.4-10.4); MONOCYTES % (AUTO) 14.8 % (2-12); NEUTROPHILS % (AUTO) 59.3 % (42-75); PLATELET COUNT 172 X10'3 (140-440); RED BLOOD COUNT 3.91 X10'6 (4.20-5.60); RED CELL DISTRIBUTION WIDTH 14.8 % (11.5-14.5)
[2019-06-30 05:43] LABS: ALBUMIN 2.8 G/DL (3.4-5.0); BLOOD UREA NITROGEN 16 MG/DL (7-18); BUN/CREATININE RATIO 20.5 (6.6-38.0); CHLORIDE 100 MMOL/L (99-107); CREATININE 0.78 MG/DL (0.40-0.90); GLUCOSE 105 MG/DL (70-104); POTASSIUM 3.6 MMOL/L (3.5-5.1); SODIUM 145 MMOL/L (135-145); eGFR 74 ML/MIN
[2019-06-30 05:49] LABS: ANION GAP 0 (8-16)
[2019-06-30 05:51] LABS: TOTAL CARBON DIOXIDE 44.9 MMOL/L (24-32)
--- NOTE | 2019-06-30 06:20 | NUR ---
Problems reprioritized. Patient report given, questions answered & plan of care reviewed with Chelo LADD.
--- NOTE | 2019-06-30 06:24 | NUR ---
Patient in room PCU 3016. I have received report from WILBERTO Whitmore and had the opportunity to ask questions and assume patient care. Patient currently sleeping in bed, bipap on, no acute distress, will continue to monitor.
[2019-06-30 06:31] LABS: ANISOCYTOSIS 1+; LARGE PLATELETS MODERATE; PLATELET ESTIMATE NORMAL
[2019-06-30 06:42] VITALS: BP 171/81
[2019-06-30] MEDS: hydrALAZINE 20mg/ml inj. IV PRN (06:54)
[2019-06-30] MEDS: enoxaparin 40mg/0.4ml syringe SUBCUT SCH (07:33)
[2019-06-30] MEDS: loperamide 2mg capsule PO SCH (07:34)
[2019-06-30] MEDS: FLUoxetine 20mg capsule PO SCH (07:34)
[2019-06-30] MEDS: losartan 50mg tablet PO SCH (07:34)
[2019-06-30] MEDS: carvedilol 6.25mg tablet PO SCH (07:34)
[2019-06-30] MEDS: lactobacillus rhamnosus 10,000 MMU CELLS/CAPSULE PO SCH (07:34)
[2019-06-30] MEDS: nitroGLYCERIN 0.4mg/hour patch TD SCH (07:35)
[2019-06-30] MEDS: furosemide 20 MG/2 ML vial IV SCH (07:35)
[2019-06-30] MEDS: CefTRIAXone/D5W-Rocephin 1gm 50 ML IV SCH (07:35)
[2019-06-30] MEDS ORDERED: FURO40TA4 PO (09:02)
--- NOTE | 2019-06-30 11:36 | NUR ---
Received orders for patient discharge to home. IV removed, catheter tip intact, hemostasis acheived, telemetry removed, prescriptions called to pharmacy, discharge instructinos given, patient verbalized understanding of discharge instructions. Patient's granddaughter arrived to transport patient, was able to transfer patient to wheelchair. VSS at time of discharge.
== END 2019-06-30 11:25 | disposition home health service (06) | DRG 291 ==
LOC: ER 10:31 → ED HOLD 15:08 → PCU 3S 16:10
PROVIDERS: ADMIT Internal Medicine; ATTEND Internal Medicine
PROC: 5A09357 Assistance with Respiratory Ventilation, Less than 24 Consecutive Hours, Continuous Positive Airway Pressure (ICD-10-PCS; 2019-06-26)
PROC: 5A09357 Assistance with Respiratory Ventilation, Less than 24 Consecutive Hours, Continuous Positive Airway Pressure (ICD-10-PCS; 2019-06-27)
PROC: 3E02340 Introduction of Influenza Vaccine into Muscle, Percutaneous Approach (ICD-10-PCS; principal; 2019-06-28)
PROC: 3E0234Z Introduction of Serum, Toxoid and Vaccine into Muscle, Percutaneous Approach (ICD-10-PCS; 2019-06-28)
PROC: 5A09357 Assistance with Respiratory Ventilation, Less than 24 Consecutive Hours, Continuous Positive Airway Pressure (ICD-10-PCS; 2019-06-28)
PROC: 5A09357 Assistance with Respiratory Ventilation, Less than 24 Consecutive Hours, Continuous Positive Airway Pressure (ICD-10-PCS; 2019-06-29)
PROC: 5A09357 Assistance with Respiratory Ventilation, Less than 24 Consecutive Hours, Continuous Positive Airway Pressure (ICD-10-PCS; 2019-06-30)
DX: I13.0 Hypertensive heart and chronic kidney disease with heart failure and stage 1 through stage 4 chronic kidney disease, or unspecified chronic kidney disease (principal); J96.02 Acute respiratory failure with hypercapnia; E87.0 Hyperosmolality and hypernatremia; E87.2 Acidosis; N39.0 Urinary tract infection, site not specified; G93.40 Encephalopathy, unspecified; I50.813 Acute on chronic right heart failure; J44.9 Chronic obstructive pulmonary disease, unspecified; F32.9 Major depressive disorder, single episode, unspecified; G47.00 Insomnia, unspecified; B96.20 Unspecified Escherichia coli [E. coli] as the cause of diseases classified elsewhere; N18.9 Chronic kidney disease, unspecified; G47.33 Obstructive sleep apnea (adult) (pediatric); I50.9 Heart failure, unspecified; Z90.49 Acquired absence of other specified parts of digestive tract; Z87.891 Personal history of nicotine dependence; Z86.73 Personal history of transient ischemic attack (TIA), and cerebral infarction without residual deficits; Z88.1 Allergy status to other antibiotic agents; Z88.0 Allergy status to penicillin; Z88.8 Allergy status to other drugs, medicaments and biological substances; Z88.6 Allergy status to analgesic agent; Z79.899 Other long term (current) drug therapy; Z23 Encounter for immunization; I27.81 Cor pulmonale (chronic)
CPT/HCPCS: 36415; 36600; 70450; 70496; 70498; 71045; 80048; 80053; 81001; 82803; 83880; 84484; 85018; 85025; 85610; 85730; 87077; 87081; 87088; 87186; 90732; 93306; 94640; 94660; 94760; 97110; 97116; 97161; 97530; 99285; G0378; J0360; J0696; J1650; J1940; J7070; Q2037; Q9967

== ENCOUNTER 2019-07-12 15:43 | Inpatient (IN) | payer MEDICARE, MEDICAID ==
[~2019-07-12] VITALS: Ht 165.1 cm; Wt 79.0 kg
[~2019-07-12 15:43] MED LIST changes: +FURO40TA4 PO; -PRED10TA PO; +TRAZ-251 PO
[2019-07-12 16:41] LABS: BASOPHILS # (AUTO) 0.2 X10'3 (0-0.2); EOSINOPHILS % (AUTO) 0.3 % (0-6); RED CELL DISTRIBUTION WIDTH 14.4 % (11.5-14.5)
[2019-07-12 16:43] LABS: BASOPHILS % (AUTO) 1.3 % (0-1); HEMATOCRIT 36.5 % (35.0-45.0); HEMOGLOBIN 11.7 g/dl (12.0-16.0); LYMPHOCYTES # (AUTO) 1.2 X10'3 (1.1-4.8); LYMPHOCYTES % (AUTO) 9.7 % (21-51); MEAN CORPUSCULAR HEMOGLOBIN 30.2 PG (27.0-31.0); MEAN CORPUSCULAR VOLUME 94.3 FL (78-98); MONOCYTES # (AUTO) 1.3 X10'3 (0-0.9); MONOCYTES % (AUTO) 10.1 % (2-12); NEUTROPHILS # (AUTO) 10.1 X10'3 (1.8-7.7); NEUTROPHILS % (AUTO) 78.6 % (42-75); PLATELET COUNT 266 X10'3 (140-440); RED BLOOD COUNT 3.87 X10'6 (4.20-5.60); WHITE BLOOD COUNT 12.9 X10'3 (4.5-11.0)
[2019-07-12 16:53] LABS: PARTIAL THROMBOPLASTIN TIME 27 SECONDS (22-32)
[2019-07-12 17:06] LABS: ALANINE AMINOTRANSFERASE 14 U/L (12-78); ALBUMIN 2.6 G/DL (3.4-5.0); ALBUMIN/GLOBULIN RATIO 0.7 (1.1-1.5); ALKALINE PHOSPHATASE 70 IU/L (46-116); ANION GAP 1 (8-16); ASPARTATE AMINO TRANSFERASE 11 U/L (10-37); BILIRUBIN,TOTAL 0.6 MG/DL (0.1-1.0); BLOOD UREA NITROGEN 18 MG/DL (7-18); BUN/CREATININE RATIO 16.7 (6.6-38.0); CALCIUM 8.3 MG/DL (8.5-10.1); CHLORIDE 102 MMOL/L (99-107); CREATININE 1.08 MG/DL (0.40-0.90); GLUCOSE 133 MG/DL (70-104); SODIUM 142 MMOL/L (135-145); TOTAL CARBON DIOXIDE 38.9 MMOL/L (24-32); TOTAL PROTEIN 6.5 G/DL (6.4-8.2); eGFR 51 ML/MIN
[2019-07-12 17:15] LABS: POTASSIUM 2.9 MMOL/L (3.5-5.1)
[2019-07-12] MEDS ORDERED: potassium 10mEq/100ml NS w/LIDOcaine (10mg/bag) IV SCH (17:30)
[2019-07-12 17:36] LABS: ANISOCYTOSIS 1+; PLATELET ESTIMATE NORMAL; POIKILOCYTOSIS 1+
[2019-07-12 17:39] LABS: ACANTHOCYTES 1+; BURR CELLS FEW; MICROCYTOSIS FEW; SCHISTOCYTES 1+; SPHEROCYTES FEW; TEAR DROP CELLS FEW
[2019-07-12] MEDS ORDERED: potassium Cl 10 mEq/100mL bag IV SCH (17:49)
[2019-07-12 17:54] LABS: MAGNESIUM 1.7 MG/DL (1.5-2.4)
[2019-07-12] MEDS ORDERED: ipratropium/albuterol 3ml nebule NEB ONE (18:10)
[2019-07-12] MEDS ORDERED: vancomycin/NS 1 GM ADD-VANTAGE 250 ML IV ONE (18:10)
[2019-07-12] MEDS ORDERED: CefTRIAXone/D5W-Rocephin 1gm 50 ML IV ONE (18:10)
[2019-07-12 19:01] LABS: ABG BASE EXCESS 6.8 mmol/L (-2.0-3.0); ABG HCO3 33.5 mmol/L (22.0-26.0); ABG OXYGEN SATURATION 94.4 % (95-98); ABG PCO2 (T) 57.3 mmHg (35.0-45.0); ABG PH (T) 7.383 (7.350-7.450); ABG PO2 (T) 71.3 mmHg (83-108); ALLEN'S TEST Positive; FCOHb 1.8 % (0.5-1.5); FLOW 6 L/min; FMetHb 0.2 % (0.3-1.12); FO2Hb 92.5 % (94-100); PATIENT TEMPERATURE 36.7; TOTAL HEMOGLOBIN 12.2 G/dl (12.0-16.0)
[2019-07-12] MEDS ORDERED: potassium Cl 20 mEq SR tablet PO PRN ×2 (20:00)
[2019-07-12] MEDS ORDERED: acetaminophen 325mg tablet PO PRN ×2 (20:00)
[2019-07-12] MEDS: K and/or MAG REPLACEMENT MC SCH (20:00)
[2019-07-12] MEDS ORDERED: potassium CL 10mEq/100ml bag 100 ML IV PRN ×2 (20:00)
[2019-07-12] MEDS ORDERED: mag hydrox/Alum hydrox/simeth 30ml oral suspension PO PRN (20:00)
[2019-07-12] MEDS ORDERED: ondansetron/PF 4mg/2ml inj IV PRN (20:00)
[2019-07-12] MEDS ORDERED: magnesium 4gm in 100ml NS 100 ML IV PRN (20:00)
[2019-07-12] MEDS ORDERED: magnesium 2GM in 50ml NS 50 ML IV PRN (20:00)
[2019-07-12] MEDS ORDERED: docusate sod 100mg capsule PO PRN (20:00)
[2019-07-12] MEDS: doxycycline inj 100 MG in normal saline 100ml IV soln 100 ML IV SCH (21:12)
--- NOTE | 2019-07-12 22:17 | NUR ---
attempted to call ER for report, no answer, will try back shortly
--- NOTE | 2019-07-12 22:27 | NUR ---
rec'd report from ER.
[2019-07-12 23:00] VITALS: BP 177/69
[2019-07-12] MEDS: ipratropium/albuterol 3ml nebule NEB SCH (23:29)
[2019-07-12 23:45] VITALS: BP 146/64
[2019-07-13] MEDS: methylPREDNISolone sod succ/PF 40mg inj. IV SCH ×4 (00:03→23:33)
[2019-07-13 03:00] VITALS: BP 117/58
[2019-07-13 04:44] LABS: ALANINE AMINOTRANSFERASE 10 U/L (12-78); ALBUMIN 2.6 G/DL (3.4-5.0); ALBUMIN/GLOBULIN RATIO 0.7 (1.1-1.5); ALKALINE PHOSPHATASE 75 IU/L (46-116); ANION GAP 1 (8-16); ASPARTATE AMINO TRANSFERASE 12 U/L (10-37); BILIRUBIN,TOTAL 0.4 MG/DL (0.1-1.0); BLOOD UREA NITROGEN 15 MG/DL (7-18); BUN/CREATININE RATIO 16.7 (6.6-38.0); CALCIUM 8.7 MG/DL (8.5-10.1); CHLORIDE 104 MMOL/L (99-107); GLUCOSE 150 MG/DL (70-104); POTASSIUM 3.6 MMOL/L (3.5-5.1); SODIUM 143 MMOL/L (135-145); TOTAL PROTEIN 6.6 G/DL (6.4-8.2); eGFR 63 ML/MIN
[2019-07-13 04:47] LABS: MAGNESIUM 1.8 MG/DL (1.5-2.4)
[2019-07-13 04:49] LABS: BASOPHILS # (AUTO) 0.1 X10'3 (0-0.2); EOSINOPHILS % (AUTO) 0.1 % (0-6); MEAN PLATELET VOLUME 10.7 FL (7.4-10.4); MONOCYTES # (AUTO) 0.2 X10'3 (0-0.9)
[2019-07-13 04:54] LABS: BASOPHILS % (AUTO) 0.8 % (0-1); HEMATOCRIT 36.5 % (35.0-45.0); HEMOGLOBIN 11.6 g/dl (12.0-16.0); LYMPHOCYTES # (AUTO) 0.6 X10'3 (1.1-4.8); LYMPHOCYTES % (AUTO) 6.2 % (21-51); MEAN CORPUSCULAR HEMOGLOBIN 30.3 PG (27.0-31.0); MEAN CORPUSCULAR HGB CONC 31.9 g/dL (33.0-36.5); MEAN CORPUSCULAR VOLUME 94.9 FL (78-98); MONOCYTES % (AUTO) 1.8 % (2-12); NEUTROPHILS # (AUTO) 9.1 X10'3 (1.8-7.7); NEUTROPHILS % (AUTO) 91.1 % (42-75); PLATELET COUNT 277 X10'3 (140-440); RED BLOOD COUNT 3.85 X10'6 (4.20-5.60); RED CELL DISTRIBUTION WIDTH 14.1 % (11.5-14.5)
[2019-07-13 06:03] LABS: LARGE PLATELETS FEW; PLATELET ESTIMATE NORMAL
--- NOTE | 2019-07-13 06:24 | NUR ---
Problems reprioritized. Patient report given, questions answered & plan of care reviewed with SUNNY LADD.
--- NOTE | 2019-07-13 06:54 | NUR ---
Patient in room PCU 3010. I have received report from Marcela LADD and had the opportunity to ask questions and assume patient care. Will continue to monitor patient.
[2019-07-13 07:00] VITALS: BP 111/56
[2019-07-13] MEDS: K and/or MAG REPLACEMENT MC SCH ×2 (08:00→19:06)
[2019-07-13] MEDS: doxycycline inj 100 MG in normal saline 100ml IV soln 100 ML IV SCH (08:01)
[2019-07-13] MEDS: enoxaparin 40mg/0.4ml syringe SQ SCH (08:01)
[2019-07-13] MEDS: ipratropium/albuterol 3ml nebule NEB SCH ×3 (08:21→20:14)
[2019-07-13] MEDS ORDERED: levoFLOXACIN-Levaquin 750MG/D5 150 ML IV SCH (09:35)
[2019-07-13 11:00] VITALS: BP 158/66
[2019-07-13] MEDS ORDERED: TRAZ-251 PO (12:28)
[2019-07-13] MEDS ORDERED: ALBU2.5V10 IH (12:29)
[2019-07-13] MEDS ORDERED: ipratropium 0.5 MG/2.5ML nebule IH PRN (15:15)
[2019-07-13 16:05] VITALS: BP 154/79
[2019-07-13 18:00] VITALS: BP 167/75
--- NOTE | 2019-07-13 18:37 | NUR ---
Problems reprioritized. Patient report given, questions answered & plan of care reviewed with Marcela LADD and Rajiv LADD.
--- NOTE | 2019-07-13 18:42 | NUR ---
Patient in room PCU 3010. I have received report from SUNNY LADD and had the opportunity to ask questions and assume patient care with WOO LADD.
--- NOTE | 2019-07-13 18:42 | NUR ---
Patient in room PCU 3010. I have received report from Radha LADD and had the opportunity to ask questions and assume patient care.
[2019-07-13] MEDS: carvedilol 6.25mg tablet PO SCH (19:11)
[2019-07-13] MEDS: lactobacillus rhamnosus 10,000 MMU CELLS/CAPSULE PO SCH (19:12)
[2019-07-13] MEDS: traZODone 50mg tablet PO SCH (21:28)
[2019-07-13 22:00] VITALS: BP 129/54
[2019-07-14] VITALS (7 sets, daily range): BP systolic 145–179; BP diastolic 67–84
[2019-07-14 05:25] LABS: EOSINOPHILS % (AUTO) 0 % (0-6); LYMPHOCYTES # (AUTO) 0.8 X10'3 (1.1-4.8); MEAN CORPUSCULAR HGB CONC 32.2 g/dL (33.0-36.5); MONOCYTES # (AUTO) 0.2 X10'3 (0-0.9); MONOCYTES % (AUTO) 2.7 % (2-12); RED CELL DISTRIBUTION WIDTH 14.6 % (11.5-14.5)
[2019-07-14 05:27] LABS: BASOPHILS % (AUTO) 0.3 % (0-1); HEMATOCRIT 36.7 % (35.0-45.0); HEMOGLOBIN 11.8 g/dl (12.0-16.0); LYMPHOCYTES % (AUTO) 11.7 % (21-51); MEAN CORPUSCULAR HEMOGLOBIN 30.4 PG (27.0-31.0); MEAN CORPUSCULAR VOLUME 94.4 FL (78-98); MEAN PLATELET VOLUME 9.8 FL (7.4-10.4); NEUTROPHILS # (AUTO) 5.9 X10'3 (1.8-7.7); NEUTROPHILS % (AUTO) 85.3 % (42-75); PLATELET COUNT 286 X10'3 (140-440); RED BLOOD COUNT 3.89 X10'6 (4.20-5.60); WHITE BLOOD COUNT 6.9 X10'3 (4.5-11.0)
[2019-07-14 05:40] LABS: ALANINE AMINOTRANSFERASE 13 U/L (12-78); ALBUMIN 2.6 G/DL (3.4-5.0); ALBUMIN/GLOBULIN RATIO 0.7 (1.1-1.5); ALKALINE PHOSPHATASE 72 IU/L (46-116); ANION GAP 4 (8-16); ASPARTATE AMINO TRANSFERASE 14 U/L (10-37); BILIRUBIN,TOTAL 0.3 MG/DL (0.1-1.0); BLOOD UREA NITROGEN 23 MG/DL (7-18); BUN/CREATININE RATIO 26.4 (6.6-38.0); CALCIUM 9.1 MG/DL (8.5-10.1); CHLORIDE 105 MMOL/L (99-107); CREATININE 0.87 MG/DL (0.40-0.90); GLUCOSE 142 MG/DL (70-104); MAGNESIUM 1.9 MG/DL (1.5-2.4); POTASSIUM 3.6 MMOL/L (3.5-5.1); SODIUM 145 MMOL/L (135-145); TOTAL CARBON DIOXIDE 35.6 MMOL/L (24-32); TOTAL PROTEIN 6.4 G/DL (6.4-8.2); eGFR 65 ML/MIN
--- NOTE | 2019-07-14 06:20 | NUR ---
Patient in room PCU 3010. I have received report from Rajiv LADD and Marcela RN and had the opportunity to ask questions and assume patient care.
--- NOTE | 2019-07-14 06:22 | NUR ---
Orientee documentation: I have reviewed and agree with all interventions, meds given and assessments performed and documented by Rajiv LADD .
--- NOTE | 2019-07-14 06:22 | NUR ---
Problems reprioritized. Patient report given, questions answered & plan of care reviewed with Chelo LADD.
[2019-07-14 06:40] LABS: PLATELET ESTIMATE NORMAL
[2019-07-14 06:41] LABS: BURR CELLS FEW; SCHISTOCYTES FEW
[2019-07-14] MEDS: ipratropium/albuterol 3ml nebule NEB SCH ×3 (07:19→20:07)
[2019-07-14] MEDS: K and/or MAG REPLACEMENT MC SCH ×2 (08:00→20:00)
[2019-07-14] MEDS: methylPREDNISolone sod succ/PF 40mg inj. IV SCH ×2 (08:24→15:43)
[2019-07-14] MEDS: losartan 50mg tablet PO SCH (08:25)
[2019-07-14] MEDS: FLUoxetine 20mg capsule PO SCH (08:25)
[2019-07-14] MEDS: lactobacillus rhamnosus 10,000 MMU CELLS/CAPSULE PO SCH ×2 (08:25→20:52)
[2019-07-14] MEDS: carvedilol 6.25mg tablet PO SCH ×2 (08:25→20:52)
[2019-07-14] MEDS: furosemide 40mg tablet PO SCH (08:26)
[2019-07-14] MEDS: enoxaparin 40mg/0.4ml syringe SQ SCH (08:26)
--- NOTE | 2019-07-14 12:00 | NUR ---
Paged hospitalist, Dr. Edge, regarding blood pressure. Patient denies any chest pain, shortness of breath, headache, focal weakness. PAGER ID: [phone] MESSAGE: Chelo dhillon Chika0. Love Gupta0. Patient BP 176/81, 176/80 manually. Patient asymptomatic. Do you want any PRN medications? Thank you!
[2019-07-14] MEDS ORDERED: amLODIPine 5mg tablet PO ONE ×2 (13:45→19:35)
--- NOTE | 2019-07-14 17:06 | NUR ---
Paged hospitalist, Dr. Edge, regarding patient's blood pressure. Patient asymptomatic at this time. PAGER ID: [phone] MESSAGE: Chelo dhillon [phone]. Love Gupta. Pt blood pressure 168/76, patient asymptomatic. Do you want any PRN medications? Thanks!
--- NOTE | 2019-07-14 18:23 | NUR ---
Problems reprioritized. Patient report given, questions answered & plan of care reviewed with Myranda LADD. Patient laying in bed, eyes closed.
--- NOTE | 2019-07-14 18:34 | NUR ---
Patient in room PCU 3010. I have received report from Chelo LADD and had the opportunity to ask questions and assume patient care.
[2019-07-14] MEDS: traZODone 50mg tablet PO SCH (20:52)
[2019-07-15] MEDS: methylPREDNISolone sod succ/PF 40mg inj. IV SCH ×2 (00:49→08:11)
[2019-07-15 02:00] VITALS: BP 166/68
[2019-07-15 05:11] LABS: EOSINOPHILS % (AUTO) 0 % (0-6); HEMOGLOBIN 11.8 g/dl (12.0-16.0); MONOCYTES # (AUTO) 0.2 X10'3 (0-0.9); RED CELL DISTRIBUTION WIDTH 14.3 % (11.5-14.5)
[2019-07-15 05:15] LABS: BASOPHILS % (AUTO) 0.2 % (0-1); LYMPHOCYTES # (AUTO) 0.9 X10'3 (1.1-4.8); LYMPHOCYTES % (AUTO) 13.1 % (21-51); MEAN CORPUSCULAR VOLUME 93.9 FL (78-98); MEAN PLATELET VOLUME 10.6 FL (7.4-10.4); MONOCYTES % (AUTO) 3.4 % (2-12); NEUTROPHILS # (AUTO) 5.8 X10'3 (1.8-7.7); NEUTROPHILS % (AUTO) 83.3 % (42-75); PLATELET COUNT 313 X10'3 (140-440); RED BLOOD COUNT 3.94 X10'6 (4.20-5.60); WHITE BLOOD COUNT 6.9 X10'3 (4.5-11.0)
[2019-07-15 05:17] LABS: ALANINE AMINOTRANSFERASE 20 U/L (12-78); ALBUMIN 2.7 G/DL (3.4-5.0); ALBUMIN/GLOBULIN RATIO 0.8 (1.1-1.5); ALKALINE PHOSPHATASE 70 IU/L (46-116); ANION GAP 2 (8-16); ASPARTATE AMINO TRANSFERASE 14 U/L (10-37); BILIRUBIN,TOTAL 0.3 MG/DL (0.1-1.0); BLOOD UREA NITROGEN 40 MG/DL (7-18); BUN/CREATININE RATIO 41.2 (6.6-38.0); CHLORIDE 104 MMOL/L (99-107); CREATININE 0.97 MG/DL (0.40-0.90); GLUCOSE 157 MG/DL (70-104); MAGNESIUM 1.9 MG/DL (1.5-2.4); POTASSIUM 3.9 MMOL/L (3.5-5.1); SODIUM 144 MMOL/L (135-145); TOTAL CARBON DIOXIDE 37.6 MMOL/L (24-32); TOTAL PROTEIN 6.3 G/DL (6.4-8.2); eGFR 57 ML/MIN
[2019-07-15 06:00] VITALS: BP 174/72
--- NOTE | 2019-07-15 06:10 | NUR ---
Patient in room U 3010. I have received report from and had the opportunity to ask questions and assume patient care. Addendum: 07/15/19 at 0649 by Chelo Finnegan RN Report received from Myranda LADD
--- NOTE | 2019-07-15 06:33 | NUR ---
Problems reprioritized. Patient report given, questions answered & plan of care reviewed with Chelo LADD.
[2019-07-15 06:51] LABS: GIANT PLATELET FEW; LARGE PLATELETS FEW; PLATELET ESTIMATE DECREASED; SCHISTOCYTES FEW
[2019-07-15 06:52] LABS: BURR CELLS FEW
[2019-07-15] MEDS: ipratropium/albuterol 3ml nebule NEB SCH ×2 (07:37→15:00)
[2019-07-15] MEDS: K and/or MAG REPLACEMENT MC SCH (08:00)
[2019-07-15] MEDS ORDERED: amLODIPine 5mg tablet PO SCH ×2 (08:00)
[2019-07-15] MEDS ORDERED: levoFLOXACIN-Levaquin 750MG/D5 150 ML IV SCH (08:00)
[2019-07-15] MEDS: FLUoxetine 20mg capsule PO SCH (08:11)
[2019-07-15] MEDS: lactobacillus rhamnosus 10,000 MMU CELLS/CAPSULE PO SCH (08:12)
[2019-07-15] MEDS: carvedilol 6.25mg tablet PO SCH (08:12)
[2019-07-15] MEDS: furosemide 40mg tablet PO SCH (08:12)
[2019-07-15] MEDS: losartan 50mg tablet PO SCH (08:13)
[2019-07-15] MEDS: enoxaparin 40mg/0.4ml syringe SQ SCH (08:14)
[2019-07-15 11:00] VITALS: BP 140/57
[2019-07-15] MEDS ORDERED: DOCU100C40 PO (12:28)
[2019-07-15] MEDS ORDERED: LACT1CAP26 PO (12:28)
[2019-07-15] MEDS ORDERED: PRED10TA23 PO (12:28)
[2019-07-15] MEDS ORDERED: BUDE10.22 INH (12:28)
[2019-07-15] MEDS ORDERED: NOR5T PO (12:28)
[2019-07-15] MEDS ORDERED: LEVO750T46 PO (12:28)
[2019-07-15 15:00] VITALS: BP 137/49
--- NOTE | 2019-07-15 15:35 | NUR ---
Per MD order, Dr. Edge, patient is stable for discharge home. Discharge packet printed and reviewed with patient and family at bedside. all prescriptions sent to pharmacy of choice, called to [facility] [address]. IV removed with cannula intact, tele monitor removed. All belongings sent with patient and family. All questions answered and follow up instructions reviewed with family at bedside. Patient escorted to private vehicle, via wheelchair, to go home with family.
[2019-08-09] MEDS ORDERED: FURO40TA4 PO (11:25)
[2019-08-10] MEDS ORDERED: CARV-50 PO (12:43)
[2019-08-10] MEDS ORDERED: SULF1TAB49 PO (13:05)
[2019-08-10] MEDS ORDERED: FURO-150 PO (13:10)
[2019-08-10] MEDS ORDERED: CLON0.1T PO (17:36)
== END 2019-07-15 15:38 | disposition home health service (06) | DRG 189 ==
LOC: ER 15:43 → ED HOLD 20:06 → EDBEDREQ 21:58 → PCU 3S 23:37
PROVIDERS: ADMIT Family Medicine; ATTEND Family Medicine
PROC: 5A09357 Assistance with Respiratory Ventilation, Less than 24 Consecutive Hours, Continuous Positive Airway Pressure (ICD-10-PCS; principal; 2019-07-12)
PROC: 5A09357 Assistance with Respiratory Ventilation, Less than 24 Consecutive Hours, Continuous Positive Airway Pressure (ICD-10-PCS; 2019-07-14)
PROC: 5A09357 Assistance with Respiratory Ventilation, Less than 24 Consecutive Hours, Continuous Positive Airway Pressure (ICD-10-PCS; 2019-07-15)
DX: J96.21 Acute and chronic respiratory failure with hypoxia (principal); J18.9 Pneumonia, unspecified organism; I50.33 Acute on chronic diastolic (congestive) heart failure; I48.92 Unspecified atrial flutter; J44.1 Chronic obstructive pulmonary disease with (acute) exacerbation; J44.0 Chronic obstructive pulmonary disease with (acute) lower respiratory infection; I11.0 Hypertensive heart disease with heart failure; F32.9 Major depressive disorder, single episode, unspecified; G47.33 Obstructive sleep apnea (adult) (pediatric); K21.9 Gastro-esophageal reflux disease without esophagitis; E87.6 Hypokalemia; N18.9 Chronic kidney disease, unspecified; Z86.73 Personal history of transient ischemic attack (TIA), and cerebral infarction without residual deficits; Z99.81 Dependence on supplemental oxygen; Z88.5 Allergy status to narcotic agent; Z88.0 Allergy status to penicillin; Z88.8 Allergy status to other drugs, medicaments and biological substances; Z87.891 Personal history of nicotine dependence; Z82.49 Family history of ischemic heart disease and other diseases of the circulatory system; Z95.5 Presence of coronary angioplasty implant and graft; Z98.51 Tubal ligation status
CPT/HCPCS: 36415; 36600; 71045; 80053; 82803; 83605; 83735; 83880; 84132; 84484; 85018; 85025; 85610; 85730; 87040; 87081; 93005; 94640; 94660; 94760; 96365; 96366; 96367; 96368; 97116; 97162; 97530; 99285; G0378; J0696; J1650; J1956; J2920; J3370; J3480; J3490